=== PATIENT | female | born 1940 | race Caucasian/White ===

== ENCOUNTER 2017-02-17 20:44 | Inpatient (IN) | payer MEDICARE ==
[~2017-02-17] VITALS: Ht 157.5 cm; Wt 81.3 kg
[~2017-02-17 20:44] MED LIST: APIX5TAB PO; BETH25 PO; FENO50TA PO; HYDR7.5T76 PO; LEVO75TA3 PO; METO5TAB PO; NEXI40CA PO; OMEG1CAP53 PO; PRAM.25 PO; RANI150 PO; REST0.05 OU; TAB-TAB PO; VITA20003 PO; VITA250L OR; XALA0.00 EACH EYE
[2017-02-17 20:50] VITALS: BP 187/85; PULSE 95; RESP 18; TEMP 98.2; O2SAT 96
[2017-02-17 21:24] VITALS: TEMP 99.7
[2017-02-17] MEDS ORDERED: MULT1TAB46 ×2 (21:25)
[2017-02-17] MEDS ORDERED: HYDR-3113 PO ×2 (21:26)
[2017-02-17] MEDS ORDERED: ZETI10TA5 PO ×2 (21:26)
[2017-02-17] MEDS ORDERED: TRIA37.53 PO ×2 (21:26)
[2017-02-17] MEDS ORDERED: METO5TAB PO ×2 (21:26)
[2017-02-17] MEDS ORDERED: HYDR-3583 PO ×2 (21:26)
[2017-02-17] MEDS ORDERED: OMEG1CAP53 PO ×2 (21:26)
[2017-02-17] MEDS ORDERED: PRAM0.5T PO ×2 (21:26)
[2017-02-17] MEDS ORDERED: VITA1000 PO ×2 (21:26)
[2017-02-17] MEDS ORDERED: ZANT150T2 PO ×2 (21:26)
[2017-02-17] MEDS ORDERED: FENO145T2 PO ×2 (21:26)
[2017-02-17] MEDS ORDERED: CYAN25005 ×2 (21:26)
[2017-02-17] MEDS ORDERED: MAGN250T11 PO ×2 (21:26)
[2017-02-17] MEDS ORDERED: LEVO.075 PO ×2 (21:26)
[2017-02-17] MEDS ORDERED: REST0.05 EACH EYE ×2 (21:26)
[2017-02-17] MEDS ORDERED: LATA.005%O EACH EYE ×2 (21:26)
[2017-02-17] MEDS ORDERED: NEXI40CA PO ×2 (21:26)
[2017-02-17] MEDS ORDERED: BETH25TA2 PO ×2 (21:26)
[2017-02-17] MEDS ORDERED: ONDANSETRON HCL 4 MG/2 ML VIAL IV ONE ×4 (21:30→23:15)
[2017-02-17] MEDS ORDERED: SODIUM CHLOR 0.9% 1000 ML INJ 1,000 ML IV SCH ×2 (21:30)
--- NOTE | 2017-02-17 21:33 | PD ---
HPI Chief Complaint: GI Complaint Time Seen by Provider: 21:22 Travel History International Travel<30 days: No Contact w/Intl Traveler<30days: No Traveled to known affect area: No History of Present Illness HPI The patient is a 76-year-old female that this morning at about 10:30 had cystoscopy, ureteroscopy and the scope went up to the renal pelvis but no biopsy was taken. Apparently, the mass they wanted to biopsy was on the outside of the kidney and not accessible by the scope. The patient at about 4 PM began having nausea, vomiting and chills and diaphoresis. She says she gets chills and diaphoresis frequently but not the nausea and vomiting. She denies any fever. She denies any chest pain or abdominal pain or shortness of breath. She does have a history of diabetes but they did not put her on metformin because she states her kidneys are bad. She quit smoking in 1996. She moved to [place] because she had Raynaud's syndrome. PFSH Past Medical History Hx Anticoagulant Therapy: Yes Arthritis: Yes Asthma: Yes Blood Disorders: No Anxiety: Yes Cancer: Yes (SKIN) Cardiovascular Problems: Yes (MITRAL VALVE PROLAPSE) High Cholesterol: Yes Chemotherapy: No Chest Pain: No Diabetes: No Diminished Hearing: No Diverticulitis: Yes Deep Vein Thrombosis: Yes (PE's x 3) Endocrine: Yes GERD: Yes Glaucoma: Yes Hepatitis: No Hiatal Hernia: Yes Hypertension: Yes Immune Disorder: No Neurologic: Yes (SPINAL STENOSIS) Psychiatric: No Respiratory: Yes Integumentary: No Radiation Therapy: No Renal Failure: No (decreased kidney function since 2006) Thyroid Disease: Yes (HYPO) ?: Not Menopausal: Yes Past Surgical History Cholecystectomy: Yes Eye Surgery: Yes (CATARACTS WITH IMPLANTS) Thoracic Surgery: No Other Surgery: Yes (GALLBLADDER) Social History Alcohol Use: No Tobacco Use: No (quit in 1996 1 1/2 ppd of cigs) Substance Use: No Allergies-Medications (Allergen,Severity, Reaction): Coded Allergies: egg (Unverified Allergy, Severe, Anaphylaxis, 11/30/16) penicillin G (Unverified Allergy, Severe, Anaphylaxis, 11/30/16) Reported Meds & Prescriptions Reported Meds & Active Scripts Active Reported Zetia (Ezetimibe) 10 Mg Tab 10 Mg PO DAILY Zantac (Ranitidine HCl) 150 Mg Tab 150 Mg PO DAILY Xalatan Opth Drops (Latanoprost) 0.005% Drops 1 Drop EACH EYE HS Vitamin D-1000 (Cholecalciferol) 1,000 Unit Tab 2,000 Units PO DAILY Vitamin B12 (Cyanocobalamin (Vitamin B-12)) 2,500 Mcg Tab.chew Vicodin Es (Hydrocodone-Acetaminophen) 7.5-300 Tab 1 Tab PO Q6H PRN Triamterene-Hydrochlorothiazide 37.5-25 Mg Cap 1 Cap PO DAILY Synthroid (Levothyroxine Sodium) 75 Mcg Tab 75 Mcg PO DAILY Restasis Opth 0.05% (Cyclosporine Opth 0.05%) 0.05% Emul 1 Drop EACH EYE BID Pramipexole (Pramipexole Dihydrochloride) 0.5 Mg Tab 0.5 Mg PO BID Nexium (Esomeprazole DR) 40 Mg Capdr 40 Mg PO DAILY Magnesium Oxide 250 Mg Tab 250 Mg PO DAILY Lovaza (Zkuni-7-Ftms Ethyl Esters) 1 Gm Cap 2 Gm PO BID Hydrocodone-Acetaminophen 10-325 mg Tab 1 Tab PO Q4H PRN Fenofibrate 145 Mg Tab 145 Mg PO DAILY Bethanechol 25 Mg Tab 12.5 Mg PO BID Metoclopramide (Metoclopramide HCl) 5 Mg Tab 5 Mg PO QID Multi Vitamin Daily (Multiple Vitamin) 1 Tab Tab Review of Systems Except as stated in HPI: all other systems reviewed are Neg Physical Exam Narrative GENERAL: The patient is alert, diaphoretic, oriented 3 and answers questions quickly improperly. She has checking chills and feels cool generally. Her vital signs show blood pressure 187/85 but are otherwise normal. The oral temp was 98.2 and the rectal temp 99.7. SKIN: Focused skin assessment warm/dry. No skin rash is present. HEAD: Atraumatic. Normocephalic. EYES: Pupils equal and round. No scleral icterus. No injection or drainage. ENT: No nasal bleeding or discharge. Mucous membranes pink and moist. NECK: Trachea midline. No JVD. There is no meningismus. CARDIOVASCULAR: Regular rate and rhythm. No murmur appreciated. RESPIRATORY: No accessory muscle use. Clear to auscultation. Breath sounds equal bilaterally. GASTROINTESTINAL: Abdomen soft, non-tender, nondistended. Hepatic and splenic margins not palpable. No guarding or rebound is present. MUSCULOSKELETAL: No obvious deformities. No clubbing. No cyanosis. No edema. NEUROLOGICAL: Awake and alert. No obvious cranial nerve deficits. Motor grossly within normal limits. Normal speech. PSYCHIATRIC: Appropriate mood and affect; insight and judgment normal. Data Data Last Documented VS Vital Signs Date Time Temp Pulse Resp B/P (MAP) Pulse Ox O2 Delivery O2 Flow Rate FiO2 02/17/17 23:00 97.9 87 16 193/80 (117) 95 Room Air Orders Orders Complete Blood Count With Diff (02/17/17 21:22) Comprehensive Metabolic Panel (02/17/17 21:22) Urinalysis - C+S If Indicated (02/17/17 21:22) Sodium Chlor 0.9% 1000 Ml Inj (Ns 1000 M (02/17/17 21:30) Ondansetron Inj (Zofran Inj) (02/17/17 21:30) Ondansetron Inj (Zofran Inj) (02/17/17 23:15) Creatine Kinase (Cpk) (02/17/17 21:45) Troponin I (02/17/17 21:45) Urine Culture (02/17/17 23:03) Admit Order (Ed Use Only) (02/17/17 23:45) Labs Laboratory Tests Test 02/17/17 21:45 02/17/17 23:03 White Blood Count 13.5 TH/MM3 Red Blood Count 4.70 MIL/MM3 Hemoglobin 13.0 GM/DL Hematocrit 40.2 % Mean Corpuscular Volume 85.4 FL Mean Corpuscular Hemoglobin 27.6 PG Mean Corpuscular Hemoglobin Concent 32.4 % Red Cell Distribution Width 14.0 % Platelet Count 348 TH/MM3 Mean Platelet Volume 9.1 FL Neutrophils (%) (Auto) 84.3 % Lymphocytes (%) (Auto) 9.2 % Monocytes (%) (Auto) 6.1 % Eosinophils (%) (Auto) 0.2 % Basophils (%) (Auto) 0.2 % Neutrophils # (Auto) 11.5 TH/MM3 Lymphocytes # (Auto) 1.2 TH/MM3 Monocytes # (Auto) 0.8 TH/MM3 Eosinophils # (Auto) 0.0 TH/MM3 Basophils # (Auto) 0.0 TH/MM3 CBC Comment DIFF FINAL Differential Comment Blood Urea Nitrogen 38 MG/DL Creatinine 2.20 MG/DL Random Glucose 145 MG/DL Total Protein 8.5 GM/DL Albumin 3.2 GM/DL Calcium Level 9.5 MG/DL Alkaline Phosphatase 122 U/L Aspartate Amino Transf (AST/SGOT) 96 U/L Alanine Aminotransferase (ALT/SGPT) 65 U/L Total Bilirubin 0.3 MG/DL Sodium Level 143 MEQ/L Potassium Level 4.4 MEQ/L Chloride Level 109 MEQ/L Carbon Dioxide Level 24.8 MEQ/L Anion Gap 9 MEQ/L Estimat Glomerular Filtration Rate 22 ML/MIN Total Creatine Kinase 44 U/L Troponin I LESS THAN 0.02 NG/ML Urine Color DELGADO Urine Turbidity CLOUDY Urine pH 5.5 Urine Specific [place] 1.025 Urine Protein 100 mg/dL Urine Glucose (UA) NEG mg/dL Urine Ketones NEG mg/dL Urine Occult Blood LARGE Urine Nitrite NEG Urine Bilirubin NEG Urine Leukocyte Esterase SMALL Urine RBC 25-49 /hpf Urine WBC 25-49 /hpf Urine Squamous Epithelial Cells 0-5 /hpf Urine Bacteria MOD /hpf Microscopic Urinalysis Comment CULTURE INDICATED MDM Medical Decision Making Medical Screen Exam Complete: Yes Emergency Medical Condition: Yes Medical Record Reviewed: Yes Interpretation(s) The urine shows delgado color with cloudy turbidity and 100 protein and large blood and small leukocyte Estrace and 25-49 white cells and 25-49 red cells and moderate bacteria and culture is indicated. The complete metabolic profile shows a creatinine of 2.20, BUN of 38, GFR of 22 with glucose 145 and AST of 96 and ALT of 65 and alkaline phosphatase of 122 and total protein 8.5 and albumin 3.2 but is otherwise unremarkable. The CBC shows a white count of 13,500 with 84% neutrophils. Differential Diagnosis Urinary tract infection, electrolyte disorder, occult infection, hypo-/ hyperglycemia, renal insufficiency Narrative Course The patient still has nausea despite 8 mg of Zofran IV. She has a leukocytosis of 13,500. She still has pain around the left UVJ area where she had her urologic procedure earlier today. Diagnosis Primary Impression: Pyelonephritis Additional Impressions: Intractable nausea and vomiting Abdominal pain Admitting Information Admitting Physician Requests: Admit Juan Nguyen MD Feb 17, 2017 21:33
[2017-02-17 22:00] LABS: AUTOMATED NEUTROPHIL # 11.5 TH/MM3 (1.8-7.7); BASOPHIL % 0.2 % (0.0-2.0); EOSINOPHIL % 0.2 % (0.0-4.0); HEMATOCRIT 40.2 % (35.0-46.0); LYMPH % 9.2 % (9.0-44.0); LYMPHOCYTE # 1.2 TH/MM3 (1.0-4.8); MEAN CELL VOLUME 85.4 FL (80.0-100.0); MEAN CORPUSCULAR HEMOGLOBIN 27.6 PG (27.0-34.0); MEAN CORPUSCULAR HGB CONC 32.4 % (32.0-36.0); MEAN PLATELET VOLUME 9.1 FL (7.0-11.0); MONO % 6.1 % (0.0-8.0); MONOCYTE # 0.8 TH/MM3 (0-0.9); NEUT % 84.3 % (16.0-70.0); PLATELET COUNT 348 TH/MM3 (150-450); WHITE BLOOD COUNT 13.5 TH/MM3 (4.0-11.0)
[2017-02-17 22:08] LABS: CHLORIDE 109 MEQ/L (98-107); SODIUM (NA) 143 MEQ/L (136-145)
[2017-02-17 22:10] LABS: BLOOD UREA NITROGEN 38 MG/DL (7-18)
[2017-02-17 22:11] LABS: ALBUMIN 3.2 GM/DL (3.4-5.0); BICARBONATE 24.8 MEQ/L (21.0-32.0); CALCIUM 9.5 MG/DL (8.5-10.1); GLUCOSE,RANDOM 145 MG/DL (74-106)
[2017-02-17 22:14] LABS: ALT (GPT) 65 U/L (10-53); AST (GOT) 96 U/L (15-37)
[2017-02-17 22:15] LABS: GLOMERULAR FILTRATION RATE 22 ML/MIN (>89)
[2017-02-17 22:16] LABS: TOTAL BILIRUBIN ADULT 0.3 MG/DL (0.2-1.0); TOTAL PROTEIN 8.5 GM/DL (6.4-8.2)
[2017-02-17 22:17] LABS: ALKALINE PHOSPHATASE 122 U/L (45-117)
[2017-02-17 23:00] VITALS: BP 193/80; PULSE 87; RESP 16; TEMP 97.9; O2SAT 95
[2017-02-17 23:12] LABS: BILIRUBIN, URINE NEG (NEG); BLOOD, URINE LARGE (NEG); GLUCOSE,URINE NEG (NEG); KETONE, URINE NEG (NEG); NITRITE,URINE NEG (NEG); PH, URINE 5.5 (5.0-8.5); URINE LEUKOCYTE ESTERASE SMALL (NEG)
[2017-02-17 23:20] LABS: BACTERIA, URINE MOD /hpf; SQUAMOUS EPITHELIAL CELL URINE 0-5 /hpf (0-5); URINE COLOR AMBER (YELLW/STRAW)
[2017-02-17 23:39] LABS: TROPONIN I LESS THAN 0.02 NG/ML (0.02-0.05)
[2017-02-18] VITALS (10 sets, daily range): BP systolic 144–204; BP diastolic 66–91; PULSE 71–90; RESP 16–22; TEMP 96.8–98.7; O2SAT 92–97
[2017-02-18] MEDS ORDERED: MORPHINE SULFATE 2 MG/ML INJ IV PUSH PRN ×2
[2017-02-18] MEDS ORDERED: PROCHLORPERAZINE 25 MG SUPP RECTAL PRN ×2
[2017-02-18] MEDS ORDERED: NALOXONE HCL 0.4 MG/ML AMP IV PUSH PRN ×2
[2017-02-18] MEDS ORDERED: CIPROFLOXACIN 400 MG PREMIX 200 ML IV ONE ×2
[2017-02-18] MEDS ORDERED: SODIUM CHLORIDE 0.9% FLUSH 10 ML FLUSH IV FLUSH PRN ×2
[2017-02-18] MEDS ORDERED: CIPROFLOXACIN 400 MG PREMIX 200 ML IV SCH ×2
[2017-02-18] MEDS ORDERED: DEXTROSE 50% IN WATER 50 ML VIAL(D50) IV PUSH PRN (00:15)
[2017-02-18] MEDS ORDERED: GLUCAGON 1 MG/ML VIAL OTHER PRN ×2 (00:15)
[2017-02-18] MEDS: SODIUM CHLOR 0.45% 1000 ML INJ 1,000 ML IV SCH ×4 (00:22→16:32)
[2017-02-18] MEDS ORDERED: MORPHINE SULFATE 2 MG/ML INJ IV PUSH ONE ×4 (00:30)
[2017-02-18] MEDS: ONDANSETRON HCL 4 MG/2 ML VIAL IVP PRN ×2 (06:21)
[2017-02-18 06:34] LABS: BASOPHIL # 0.1 TH/MM3 (0-0.2); BASOPHIL % 0.9 % (0.0-2.0); EOSINOPHIL # 0.1 TH/MM3 (0-0.4); EOSINOPHIL % 1.2 % (0.0-4.0); HEMATOCRIT 38.5 % (35.0-46.0); HEMOGLOBIN 12.6 GM/DL (11.6-15.3); LYMPH % 13.1 % (9.0-44.0); LYMPHOCYTE # 1.3 TH/MM3 (1.0-4.8); MEAN CELL VOLUME 85.9 FL (80.0-100.0); MEAN CORPUSCULAR HEMOGLOBIN 28.2 PG (27.0-34.0); MEAN CORPUSCULAR HGB CONC 32.8 % (32.0-36.0); MEAN PLATELET VOLUME 9.9 FL (7.0-11.0); MONO % 6.9 % (0.0-8.0); MONOCYTE # 0.7 TH/MM3 (0-0.9); NEUT % 77.9 % (16.0-70.0); PLATELET COUNT 277 TH/MM3 (150-450); RED BLOOD COUNT 4.48 MIL/MM3 (4.00-5.30); RED CELL DISTRIBUTION WIDTH 13.9 % (11.6-17.2); WHITE BLOOD COUNT 10.2 TH/MM3 (4.0-11.0)
[2017-02-18 06:38] LABS: CHLORIDE 113 MEQ/L (98-107); SODIUM (NA) 146 MEQ/L (136-145)
[2017-02-18 06:43] LABS: GLUCOSE,RANDOM 128 MG/DL (74-106)
[2017-02-18 06:44] LABS: BICARBONATE 23.3 MEQ/L (21.0-32.0); BLOOD UREA NITROGEN 33 MG/DL (7-18)
[2017-02-18 06:46] LABS: ALT (GPT) 54 U/L (10-53)
[2017-02-18 06:47] LABS: AST (GOT) 70 U/L (15-37); GLOMERULAR FILTRATION RATE 24 ML/MIN (>89)
[2017-02-18 06:48] LABS: TOTAL BILIRUBIN ADULT 0.4 MG/DL (0.2-1.0)
[2017-02-18 06:49] LABS: ALKALINE PHOSPHATASE 102 U/L (45-117)
[2017-02-18] MEDS: SODIUM CHLORIDE 0.9% FLUSH 10 ML FLUSH IV FLUSH SCH ×4 (08:28→20:33)
[2017-02-18] MEDS ORDERED: ACETAMINOPHEN/HYDROcodone 325 MG/10 MG TAB PO PRN ×2 (08:30)
[2017-02-18] MEDS ORDERED: ACETAMINOPHEN/HYDROcodone 325 MG/5 MG TAB PO PRN ×2 (08:30)
[2017-02-18] MEDS: INSULIN ASPART SUPPLEMENTAL SCALE SQ SCH ×8 (08:32→20:36)
[2017-02-18] MEDS ORDERED: cloNIDine HCL 0.1 MG TAB PO PRN ×2 (09:00)
--- NOTE | 2017-02-18 11:42 | HHI.HP ---
[facility] Primary Care Physician Erin Roberson MD Admission Diagnosis pyelonephritis, intractable nausea/vomiting, Diagnoses: (1) Pyelonephritis Diagnosis: Principal (2) Abdominal pain Diagnosis: Principal (3) Intractable nausea and vomiting Diagnosis: Principal Travel History International Travel<30 Days: No Contact w/Intl Traveler <30 Da: No Traveled to Known Affected Are: No History of Present Illness Mrs. Goins is a 76 year old female. She came into the hospital last night secondary to abdominal pain and irretractable nausea and vomiting. Urine is positive for UTI. Clinically patient meets criteria for pyelonephritis, with back pain and nausea and vomiting and CVA tenderness. She reports that she's been having off-and-on fever and chills since October of this year. She may have problems with recurrent urinary tract infections. She's had problems with this past and she was younger. History lists history of pulmonary embolisms the patient says that this was related to her aortic stenosis was not found to be validated on the CTA. Her most recent medical issues have been related to left renal mass. 2 cystoscopies were performed last week with the first placing a stent in the second removing the stent. Biopsies could not be obtained by this method. She will have a left renal mass removal surgery in the next month. Her only other complaint right now is lower back pain. She still has fever and chills. Review of Systems Constitutional: COMPLAINS OF: Fatigue, Fever, Chills, Night Sweats Eyes: DENIES: Diplopia, Eye inflammation, Eye pain Ears, nose, mouth, throat: DENIES: Hearing loss, Vertigo, Nasal discharge Respiratory: DENIES: Apneas, Cough, Snoring, Wheezing, Shortness of breath Cardiovascular: DENIES: Chest pain, Palpitations, Syncope Gastrointestinal: DENIES: Abdominal pain, Black stools, Bloody stools, Constipation Musculoskeletal: COMPLAINS OF: Back pain, DENIES: Joint pain, Muscle aches, Stiffness Integumentary: DENIES: Abnormal pigmentation, Pruritus, Rash Hematologic/lymphatic: DENIES: Bruising, Lymphadenopathy Immunologic/allergic: DENIES: Eczema, Urticaria Neurologic: DENIES: Abnormal gait, Headache, Paresthesias Psychiatric: DENIES: Anxiety, Confusion, Hallucinations Past Family Social History Past Medical History Osteoarthritis Asthma Gen. anxiety disorder History of skin cancer Hyperlipidemia Mitral valve prolapse next line diverticulosis Glaucoma Gastroesophageal reflux disease Hypertension Hiatal hernia Spinal stenosis Hypothyroidism Chronic kidney disease Gastroparesis History of pancreatitis Left renal mass Past Surgical History Cholecystectomy Cataract surgery Reported Medications Reported Meds & Active Scripts Active Reported Zetia (Ezetimibe) 10 Mg Tab 10 Mg PO DAILY Zantac (Ranitidine HCl) 150 Mg Tab 150 Mg PO DAILY Xalatan Opth Drops (Latanoprost) 0.005% Drops 1 Drop EACH EYE HS Vitamin D-1000 (Cholecalciferol) 1,000 Unit Tab 2,000 Units PO DAILY Vitamin B12 (Cyanocobalamin (Vitamin B-12)) 2,500 Mcg Tab.chew Vicodin Es (Hydrocodone-Acetaminophen) 7.5-300 Tab 1 Tab PO Q6H PRN Triamterene-Hydrochlorothiazide 37.5-25 Mg Cap 1 Cap PO DAILY Synthroid (Levothyroxine Sodium) 75 Mcg Tab 75 Mcg PO DAILY Restasis Opth 0.05% (Cyclosporine Opth 0.05%) 0.05% Emul 1 Drop EACH EYE BID Pramipexole (Pramipexole Dihydrochloride) 0.5 Mg Tab 0.5 Mg PO BID Nexium (Esomeprazole DR) 40 Mg Capdr 40 Mg PO DAILY Magnesium Oxide 250 Mg Tab 250 Mg PO DAILY Lovaza (Ynzdu-0-Dkai Ethyl Esters) 1 Gm Cap 2 Gm PO BID Hydrocodone-Acetaminophen 10-325 mg Tab 1 Tab PO Q4H PRN Fenofibrate 145 Mg Tab 145 Mg PO DAILY Bethanechol 25 Mg Tab 12.5 Mg PO BID Metoclopramide (Metoclopramide HCl) 5 Mg Tab 5 Mg PO QID Multi Vitamin Daily (Multiple Vitamin) 1 Tab Tab Allergies: Coded Allergies: egg (Unverified Allergy, Severe, Anaphylaxis, 11/30/16) penicillin G (Unverified Allergy, Severe, Anaphylaxis, 11/30/16) Active Ordered Medications Administered Medications Medications (Trade) Dose Ordered Sig/Vicky Route PRN Reason Start Time Stop Time Status Last Admin Dose Admin Morphine Sulfate (Morphine Inj) 2 mg Q3H PRN IV PUSH pain > 4 02/18/17 00:00 02/18/17 06:19 Sodium Chloride 1,000 ml @ 83 mls/hr Q12H3M IV 02/17/17 23:53 02/18/17 00:22 Ondansetron HCl (Zofran Inj) 4 mg Q6H PRN IVP NAUSEA OR VOMITING 02/18/17 00:00 02/18/17 06:21 Family History No positive family history provided Social History No alcohol abuse Illicit drug abuse History of smoking about one half pack per day and patient quit in 1996 Physical Exam Vital Signs Vital Signs Date Time Temp Pulse Resp B/P (MAP) Pulse Ox O2 Delivery O2 Flow Rate FiO2 02/18/17 08:00 97.0 86 20 175/86 (115) 92 02/18/17 04:00 96.9 80 22 180/81 (114) 97 02/18/17 01:36 90 02/18/17 01:30 97.6 88 22 204/91 (128) 94 180/70 (106) 02/18/17 01:19 177/82 (113) 98 02/18/17 00:41 16 02/18/17 00:33 90 16 179/67 (104) 96 Room Air 02/18/17 00:12 16 02/17/17 23:00 97.9 87 16 193/80 (117) 95 Room Air 02/17/17 21:24 99.7 02/17/17 20:50 98.2 95 18 187/85 (119) 96 Physical Exam GENERAL: NAD, A&Ox3 HEAD: Normocephalic. NECK: Supple, trachea midline. No lymphadenopathy. EYES: No scleral icterus. No injection or drainage. CARDIOVASCULAR: Regular rate and rhythm without murmurs, gallops, or rubs. RESPIRATORY: Breath sounds equal bilaterally. No accessory muscle use. GASTROINTESTINAL: Abdomen soft, non-tender, nondistended. MUSCULOSKELETAL: No cyanosis, or edema. Mild CVA tenderness bilaterally SKIN: Warm and dry. NEURO: No focal neurological deficitis. Laboratory Laboratory Tests Test 02/17/17 21:45 02/17/17 23:03 02/18/17 05:45 White Blood Count 13.5 10.2 Red Blood Count 4.70 4.48 Hemoglobin 13.0 12.6 Hematocrit 40.2 38.5 Mean Corpuscular Volume 85.4 85.9 Mean Corpuscular Hemoglobin 27.6 28.2 Mean Corpuscular Hemoglobin Concent 32.4 32.8 Red Cell Distribution Width 14.0 13.9 Platelet Count 348 277 Mean Platelet Volume 9.1 9.9 Neutrophils (%) (Auto) 84.3 77.9 Lymphocytes (%) (Auto) 9.2 13.1 Monocytes (%) (Auto) 6.1 6.9 Eosinophils (%) (Auto) 0.2 1.2 Basophils (%) (Auto) 0.2 0.9 Neutrophils # (Auto) 11.5 8.0 Lymphocytes # (Auto) 1.2 1.3 Monocytes # (Auto) 0.8 0.7 Eosinophils # (Auto) 0.0 0.1 Basophils # (Auto) 0.0 0.1 CBC Comment DIFF FINAL DIFF FINAL Differential Comment Blood Urea Nitrogen 38 33 Creatinine 2.20 2.00 Random Glucose 145 128 Total Protein 8.5 8.0 Albumin 3.2 3.0 Calcium Level 9.5 9.0 Alkaline Phosphatase 122 102 Aspartate Amino Transf (AST/SGOT) 96 70 Alanine Aminotransferase (ALT/SGPT) 65 54 Total Bilirubin 0.3 0.4 Sodium Level 143 146 Potassium Level 4.4 4.1 Chloride Level 109 113 Carbon Dioxide Level 24.8 23.3 Anion Gap 9 10 Estimat Glomerular Filtration Rate 22 24 Total Creatine Kinase 44 Troponin I LESS THAN 0.02 Urine Color KATIE Urine Turbidity CLOUDY Urine pH 5.5 Urine Specific [place] 1.025 Urine Protein 100 Urine Glucose (UA) NEG Urine Ketones NEG Urine Occult Blood LARGE Urine Nitrite NEG Urine Bilirubin NEG Urine Leukocyte Esterase SMALL Urine RBC 25-49 Urine WBC 25-49 Urine Squamous Epithelial Cells 0-5 Urine Bacteria MOD Microscopic Urinalysis Comment CULTURE INDICATED Date/Time Source Procedure Growth Status 02/17/17 23:03 Urine Clean Catch Urine Culture Pending Received Result Diagram: 02/18/17 0545 02/18/1745 Caprini VTE Risk Assessment Caprini VTE Risk Assessment: Mod/High Risk (score >= 2) Caprini Risk Assessment Model Point Value = 1 Point Value = 2 Point Value = 3 Point Value = 5 Age 41-60 Minor surgery BMI > 25 kg/m2 Swollen legs Varicose veins or History of unexplained or recurrent spontaneous Oral contraceptives or hormone replacement Sepsis (< 1 month) Serious lung disease, including pneumonia (< 1 month) Abnormal pulmonary function Acute myocardial infarction Congestive heart failure (< 1 month) History of inflammatory bowel disease Medical patient at bed rest Age 61-74 Arthroscopic surgery Major open surgery (> 45 min) Laparoscopic surgery (> 45 min) Malignancy Confined to bed (> 72 hours) Immobilizing plaster cast Central venous access Age >= 75 History of VTE Family history of VTE Factor V Leiden Prothrombin [id number] Lupus anticoagulant Anticardiolipin antibodies Elevated serum homocysteine Heparin-induced thrombocytopenia Other congenital or acquired thrombophilia Stroke (< 1 month) Elective arthroplasty Hip, pelvis, or leg fracture Acute spinal cord injury (< 1 month) Prophylaxis Regimen Total Risk Factor Score Risk Level Prophylaxis Regimen 0-1 Low Early ambulation 2 Moderate Order ONE of the following: *Sequential Compression Device (SCD) *Heparin 5000 units SQ BID 3-4 Higher Order ONE of the following medications: *Heparin 5000 units SQ TID *Enoxaparin/Lovenox 40 mg SQ daily (WT < 150 kg, CrCl > 30 mL/min) *Enoxaparin/Lovenox 30 mg SQ daily (WT < 150 kg, CrCl > 10-29 mL/min) *Enoxaparin/Lovenox 30 mg SQ BID (WT < 150 kg, CrCl > 30 mL/min) AND/OR *Sequential Compression Device (SCD) 5 or more Highest Order ONE of the following medications: *Heparin 5000 units SQ TID (Preferred with Epidurals) *Enoxaparin/Lovenox 40 mg SQ daily (WT < 150 kg, CrCl > 30 mL/min) *Enoxaparin/Lovenox 30 mg SQ daily (WT < 150 kg, CrCl > 10-29 mL/min) *Enoxaparin/Lovenox 30 mg SQ BID (WT < 150 kg, CrCl > 30 mL/min) AND *Sequential Compression Device (SCD) Assessment and Plan Problem List: (1) Pyelonephritis ICD Code: N12 - Tubulo-interstitial nephritis, not specified as acute or chronic Status: Acute (2) Abdominal pain ICD Code: R10.9 - Unspecified abdominal pain Status: Acute (3) Intractable nausea and vomiting ICD Code: R11.2 - Nausea with vomiting, unspecified Status: Acute Assessment and Plan Assessment and plan 76-year-old female admitted with acute pyelonephritis Urinary tract infection Acute pyelonephritis Continue ciprofloxacin Begin doxycycline Follow UA cultures Treat pain as needed Hyperemesis History gastroparesis Likely related to kidney inflammation Treatment infection as above As needed antiemetics Monitor for any worsening of baseline gastroparesis Hypertension Continue baseline treatments Begin as needed clonidine Follow blood pressures Left renal mass Acute on Chronic kidney disease May be contributory Recent cystoscopies also could be contributory to pyelonephritis Follow-up as an outpatient IV hydration Follow renal function Osteoarthritis Asthma Gen. anxiety disorder History of skin cancer Hyperlipidemia Mitral valve prolapse diverticulosis Glaucoma Gastroesophageal reflux disease Hiatal hernia Spinal stenosis Hypothyroidism History of pancreatitis Continue baseline treatments Follow clinically No plan to change regular treatments of these conditions DVT prophylaxis Lovenox (renally dosed) Physician Certification 2 Midnight Certification Type: Admission for Inpatient Services Order for Inpatient Services The services are ordered in accordance with Medicare regulations or non- Medicare payer requirements, as applicable. In the case of services not specified as inpatient-only, they are appropriately provided as inpatient services in accordance with the 2-midnight benchmark. Estimated LOS (days): 3 days is the estimated time the patient will need to remain in the hospital, assuming treatment plan goals are met and no additional complications. Post-Hospital Plan: Home Reji Glover MD Feb 18, 2017 11:42
[2017-02-18] MEDS: ENOXAPARIN SODIUM 40 MG/0.4 ML SYRINGE SQ SCH ×2 (12:35)
[2017-02-18] MEDS: DOXYCYCLINE INJ 100 MG in SODIUM CHLORIDE 0.9% INJ 100 ML IV SCH ×4 (12:36)
[2017-02-18] MEDS: ACETAMINOPHEN 325 MG TAB PO PRN ×4 (14:26→21:09)
[2017-02-18] MEDS ORDERED: ALUMINUM/MAGNESIUM/SIMETH 30 ML CUP PO PRN ×2 (15:00)
[2017-02-18] MEDS ORDERED: BELLADONNA ALKALOIDS/OPIUM 60 MG SUPP RECTAL PRN ×2 (17:30)
[2017-02-19] VITALS: BP 154/75; PULSE 87; RESP 18; TEMP 98.5; O2SAT 86
[2017-02-19] MEDS: CIPROFLOXACIN 400 MG PREMIX 200 ML IV SCH ×2 (00:08)
[2017-02-19] MEDS ORDERED: diphenhydrAMINE HCL 25 MG CAP PO ONE ×2 (00:15)
[2017-02-19] MEDS: DOXYCYCLINE INJ 100 MG in SODIUM CHLORIDE 0.9% INJ 100 ML IV SCH ×8 (00:17→11:16)
[2017-02-19] MEDS: ONDANSETRON HCL 4 MG/2 ML VIAL IVP PRN ×4 (01:29→06:48)
[2017-02-19 04:00] VITALS: BP 140/68; PULSE 69; RESP 18; TEMP 99; O2SAT 97
[2017-02-19] MEDS: SODIUM CHLOR 0.45% 1000 ML INJ 1,000 ML IV SCH ×2 (05:54)
[2017-02-19 06:56] LABS: AUTOMATED NEUTROPHIL # 8.4 TH/MM3 (1.8-7.7); BASOPHIL # 0.1 TH/MM3 (0-0.2); BASOPHIL % 0.9 % (0.0-2.0); EOSINOPHIL # 0.5 TH/MM3 (0-0.4); EOSINOPHIL % 4.2 % (0.0-4.0); HEMATOCRIT 33.7 % (35.0-46.0); HEMOGLOBIN 11.2 GM/DL (11.6-15.3); MEAN CORPUSCULAR HEMOGLOBIN 28.5 PG (27.0-34.0); MEAN CORPUSCULAR HGB CONC 33.2 % (32.0-36.0); MEAN PLATELET VOLUME 9.5 FL (7.0-11.0); MONO % 6.5 % (0.0-8.0); MONOCYTE # 0.8 TH/MM3 (0-0.9); NEUT % 71.4 % (16.0-70.0); PLATELET COUNT 265 TH/MM3 (150-450); RED BLOOD COUNT 3.92 MIL/MM3 (4.00-5.30); RED CELL DISTRIBUTION WIDTH 13.9 % (11.6-17.2); WHITE BLOOD COUNT 11.8 TH/MM3 (4.0-11.0)
[2017-02-19 07:02] LABS: CHLORIDE 106 MEQ/L (98-107); SODIUM (NA) 139 MEQ/L (136-145)
[2017-02-19 07:10] LABS: ALBUMIN 2.6 GM/DL (3.4-5.0); BICARBONATE 24.4 MEQ/L (21.0-32.0); BLOOD UREA NITROGEN 28 MG/DL (7-18); CALCIUM 9.1 MG/DL (8.5-10.1); GLUCOSE,RANDOM 96 MG/DL (74-106)
[2017-02-19 07:13] LABS: ALT (GPT) 44 U/L (10-53); AST (GOT) 51 U/L (15-37); GLOMERULAR FILTRATION RATE 31 ML/MIN (>89)
[2017-02-19 07:15] LABS: TOTAL BILIRUBIN ADULT 0.6 MG/DL (0.2-1.0); TOTAL PROTEIN 7.2 GM/DL (6.4-8.2)
[2017-02-19 07:16] LABS: ALKALINE PHOSPHATASE 88 U/L (45-117)
[2017-02-19 08:00] VITALS: BP 159/95; PULSE 88; RESP 18; TEMP 98.1; O2SAT 96
[2017-02-19] MEDS: INSULIN ASPART SUPPLEMENTAL SCALE SQ SCH ×8 (08:00→21:05)
[2017-02-19] MEDS: LIDOCAINE HCL 5% PATCH T-DERMAL SCH ×2 (08:07)
[2017-02-19] MEDS: SODIUM CHLORIDE 0.9% FLUSH 10 ML FLUSH IV FLUSH SCH ×4 (08:11→20:52)
[2017-02-19] MEDS ORDERED: LACTULOSE SYRUP 20 GM/30 ML CUP PO PRN ×2 (10:30)
[2017-02-19] MEDS: DOCUSATE SODIUM 100 MG CAP PO SCH ×4 (11:08→20:51)
[2017-02-19] MEDS: ENOXAPARIN SODIUM 40 MG/0.4 ML SYRINGE SQ SCH ×2 (11:16)
--- NOTE | 2017-02-19 11:26 | HHI.PR ---
Subjective Remarks Renal function is improving. Fevers have dissipated. Rigors have resolved. No new complaints. Culture has grown nothing specific. Objective Vital Signs Date Time Temp Pulse Resp B/P (MAP) Pulse Ox O2 Delivery O2 Flow Rate FiO2 02/19/17 08:00 98.1 88 18 159/95 (116) 96 02/19/17 08:00 Room Air 02/19/17 04:00 99.0 69 18 140/68 (92) 97 02/19/17 00:10 86 Nasal Cannula 2.00 02/19/17 00:00 98.5 87 18 154/75 (101) 86 02/18/17 20:00 98.7 73 16 144/77 (99) 96 02/18/17 20:00 71 02/18/17 16:00 97.1 76 20 145/66 (92) 94 02/18/17 14:23 168/75 (106) 02/18/17 12:00 96.8 83 20 163/88 (113) 94 I/O 02/18/17 02/18/17 02/18/17 02/19/17 02/19/17 02/19/17 07:00 15:00 23:00 07:00 15:00 23:00 Intake Total 2111 ml 1300 ml 866 ml 400 ml 300 ml Balance 2111 ml 1300 ml 866 ml 400 ml 300 ml Intake Oral 720 ml 1200 ml 400 ml IV Total 1391 ml 100 ml 866 ml 300 ml # Voids 1 2 2 # Bowel Movements 0 0 Result Diagram: 02/19/1720 02/19/17 0620 Objective Remarks GENERAL: NAD, A&Ox3 HEAD: Normocephalic. NECK: Supple, trachea midline. No lymphadenopathy. EYES: No scleral icterus. No injection or drainage. CARDIOVASCULAR: Regular rate and rhythm without murmurs, gallops, or rubs. RESPIRATORY: Breath sounds equal bilaterally. No accessory muscle use. GASTROINTESTINAL: Abdomen soft, non-tender, nondistended. MUSCULOSKELETAL: No cyanosis, or edema. SKIN: Warm and dry. NEURO: No focal neurological deficitis. A/P Problem List: (1) Intractable nausea and vomiting ICD Code: R11.2 - Nausea with vomiting, unspecified Status: Acute (2) Abdominal pain ICD Code: R10.9 - Unspecified abdominal pain Status: Acute (3) Pyelonephritis ICD Code: N12 - Tubulo-interstitial nephritis, not specified as acute or chronic Status: Acute Assessment and Plan Assessment and plan 76-year-old female admitted with acute pyelonephritis. Urinary tract infection Acute pyelonephritis Clinically improving Continue to follow cultures Continue ciprofloxacin Begin doxycycline Follow UA cultures Treat pain as needed Hyperemesis History gastroparesis Some improvement today Nausea remains Decreased emesis Likely related to kidney inflammation Treatment infection as above As needed antiemetics Monitor for any worsening of baseline gastroparesis Hypertension Continue baseline treatments Begin as needed clonidine Follow blood pressures Left renal mass Acute on Chronic kidney disease May be contributory Recent cystoscopies also could be contributory to pyelonephritis Follow-up as an outpatient IV hydration Follow renal function Renal function improving Osteoarthritis Asthma Gen. anxiety disorder History of skin cancer Hyperlipidemia Mitral valve prolapse diverticulosis Glaucoma Gastroesophageal reflux disease Hiatal hernia Spinal stenosis Hypothyroidism History of pancreatitis Continue baseline treatments Follow clinically No plan to change regular treatments of these conditions DVT prophylaxis Lovenox (renally dosed) Reji Glover MD Feb 19, 2017 11:26
[2017-02-19] MEDS: METOCLOPRAMIDE HCL 10 MG TAB PO SCH ×6 (12:36→20:52)
[2017-02-19 18:27] VITALS: PULSE 84
[2017-02-19] MEDS: FAMOTIDINE 20 MG TAB PO SCH ×2 (20:51)
[2017-02-19] MEDS: BETHANECHOL CHL 25 MG TAB PO SCH ×2 (20:53)
[2017-02-19] MEDS: ACETAMINOPHEN 325 MG TAB PO PRN ×2 (20:54)
[2017-02-19] MEDS ORDERED: LATANOPROST 0.005% OPHT SOLN 2.5 ML BTL EACH EYE SCH ×2 (21:00)
[2017-02-19] MEDS ORDERED: OMEGA ACID ETHYL ESTERS PO SCH ×2 (21:00)
[2017-02-19] MEDS ORDERED: PATIENT OWN MEDICATION (Cyclosporine Opth 0.05% (Restasis Opth 0.05%) 1 DROP) EACH EYE SCH ×2 (21:00)
[2017-02-19] MEDS: PRAMIPEXOLE DIHYDROCHLORIDE 0.25 MG TAB PO SCH ×2 (21:02)
[2017-02-19 21:56] VITALS: BP 159/72; PULSE 87; RESP 21; TEMP 98.7; O2SAT 93
[2017-02-19 22:08] VITALS: PULSE 83
[2017-02-20] VITALS: BP 142/65; PULSE 88; RESP 20; TEMP 97.3; O2SAT 95
[2017-02-20] MEDS: DOXYCYCLINE INJ 100 MG in SODIUM CHLORIDE 0.9% INJ 100 ML IV SCH ×8 (00:52→12:03)
[2017-02-20] MEDS: CIPROFLOXACIN 400 MG PREMIX 200 ML IV SCH ×2 (00:54)
[2017-02-20] MEDS ORDERED: LEVOTHYROXINE SODIUM 75 MCG TAB PO SCH ×2 (06:00)
[2017-02-20 07:25] LABS: CALCIUM 9.2 MG/DL (8.5-10.1)
[2017-02-20 07:29] LABS: CREATININE 1.5 MG/DL (0.50-1.00)
[2017-02-20 07:37] LABS: HEMOGLOBIN 11.2 GM/DL (11.6-15.3); MEAN CELL VOLUME 85.6 FL (80.0-100.0); MEAN CORPUSCULAR HEMOGLOBIN 28.1 PG (27.0-34.0); MEAN CORPUSCULAR HGB CONC 32.9 % (32.0-36.0); MEAN PLATELET VOLUME 9.7 FL (7.0-11.0); PLATELET COUNT 254 TH/MM3 (150-450); RED BLOOD COUNT 3.97 MIL/MM3 (4.00-5.30); RED CELL DISTRIBUTION WIDTH 14.1 % (11.6-17.2); WHITE BLOOD COUNT 8.8 TH/MM3 (4.0-11.0)
[2017-02-20 08:00] VITALS: BP 170/82; PULSE 75; RESP 18; TEMP 97.8; O2SAT 95
[2017-02-20] MEDS: INSULIN ASPART SUPPLEMENTAL SCALE SQ SCH ×4 (08:00→12:00)
[2017-02-20] MEDS: DOCUSATE SODIUM 100 MG CAP PO SCH ×2 (08:04)
[2017-02-20] MEDS: BETHANECHOL CHL 25 MG TAB PO SCH ×2 (08:11)
[2017-02-20] MEDS: FAMOTIDINE 20 MG TAB PO SCH ×2 (08:12)
[2017-02-20] MEDS: PRAMIPEXOLE DIHYDROCHLORIDE 0.25 MG TAB PO SCH ×2 (08:14)
[2017-02-20] MEDS: METOCLOPRAMIDE HCL 10 MG TAB PO SCH ×2 (08:14)
[2017-02-20] MEDS: SODIUM CHLORIDE 0.9% FLUSH 10 ML FLUSH IV FLUSH SCH ×2 (08:16)
[2017-02-20] MEDS: LIDOCAINE HCL 5% PATCH T-DERMAL SCH ×2 (08:17)
[2017-02-20] MEDS ORDERED: PANTOPRAZOLE SOD 40 MG DELAYED RELEASE TAB PO SCH ×2 (09:00)
[2017-02-20] MEDS ORDERED: TRIAMTERENE/HCTZ 37.5 MG/25 MG CAP PO SCH ×2 (09:00)
[2017-02-20] MEDS ORDERED: FENOFIBRATE 145 MG TAB PO SCH ×2 (09:00)
[2017-02-20] MEDS ORDERED: CHOLECALCIFEROL (VIT D3) 1000 UNIT TAB PO SCH ×2 (09:00)
[2017-02-20] MEDS ORDERED: EZETIMIBE 10 MG TAB PO SCH ×2 (09:00)
[2017-02-20] MEDS ORDERED: MAGNESIUM OXIDE 400 MG TAB PO SCH ×2 (09:00)
[2017-02-20] MEDS ORDERED: CIPR500T2 PO ×2 (11:05)
[2017-02-20] MEDS ORDERED: LACTTAB8 PO ×2 (11:05)
[2017-02-20] MEDS ORDERED: DOXY100C PO ×2 (11:05)
--- NOTE | 2017-02-20 11:09 | HHI.DS ---
Discharge Summary Admission Date Feb 18, 2017 at 11:27 Discharge Date: Feb 20, 2017 Admitting Diagnosis pyelonephritis, intractable nausea/vomiting, (1) Pyelonephritis ICD Code: N12 - Tubulo-interstitial nephritis, not specified as acute or chronic Diagnosis: Principal Status: Acute (2) Abdominal pain ICD Code: R10.9 - Unspecified abdominal pain Diagnosis: Secondary Status: Acute (3) Intractable nausea and vomiting ICD Code: R11.2 - Nausea with vomiting, unspecified Diagnosis: Secondary Status: Acute Procedures None Brief History - From Admission Mrs. Goins is a 76 year old female. She came into the hospital last night secondary to abdominal pain and irretractable nausea and vomiting. Urine is positive for UTI. Clinically patient meets criteria for pyelonephritis, with back pain and nausea and vomiting and CVA tenderness. She reports that she's been having off-and-on fever and chills since October of this year. She may have problems with recurrent urinary tract infections. She's had problems with this past and she was younger. History lists history of pulmonary embolisms the patient says that this was related to her aortic stenosis was not found to be validated on the CTA. Her most recent medical issues have been related to left renal mass. 2 cystoscopies were performed last week with the first placing a stent in the second removing the stent. Biopsies could not be obtained by this method. She will have a left renal mass removal surgery in the next month. Her only other complaint right now is lower back pain. She still has fever and chills. CBC/BMP: 02/20/17 0643 02/20/17 0643 Significant Findings Laboratory Tests Test 02/17/17 21:45 02/17/17 23:03 02/18/17 05:45 02/19/17 06:20 White Blood Count 13.5 TH/MM3 (4.0-11.0) 11.8 TH/MM3 (4.0-11.0) Neutrophils (%) (Auto) 84.3 % (16.0-70.0) 77.9 % (16.0-70.0) 71.4 % (16.0-70.0) Neutrophils # (Auto) 11.5 TH/MM3 (1.8-7.7) 8.0 TH/MM3 (1.8-7.7) 8.4 TH/MM3 (1.8-7.7) Blood Urea Nitrogen 38 MG/DL (7-18) 33 MG/DL (7-18) 28 MG/DL (7-18) Creatinine 2.20 MG/DL (0.50-1.00) 2.00 MG/DL (0.50-1.00) 1.60 MG/DL (0.50-1.00) Random Glucose 145 MG/DL (74-106) 128 MG/DL (74-106) Total Protein 8.5 GM/DL (6.4-8.2) Albumin 3.2 GM/DL (3.4-5.0) 3.0 GM/DL (3.4-5.0) 2.6 GM/DL (3.4-5.0) Alkaline Phosphatase 122 U/L (45-117) Aspartate Amino Transf (AST/SGOT) 96 U/L (15-37) 70 U/L (15-37) 51 U/L (15-37) Alanine Aminotransferase (ALT/SGPT) 65 U/L (10-53) 54 U/L (10-53) Chloride Level 109 MEQ/L (98-107) 113 MEQ/L (98-107) Estimat Glomerular Filtration Rate 22 ML/MIN (>89) 24 ML/MIN (>89) 31 ML/MIN (>89) Troponin I LESS THAN 0.02 NG/ML Urine Color KATIE (YELLW/STRAW) Urine Turbidity CLOUDY (CLEAR) Urine Protein 100 mg/dL (NEG-TRACE) Urine Occult Blood LARGE (NEG) Urine Leukocyte Esterase SMALL (NEG) Urine RBC 25-49 /hpf (0-3) Urine WBC 25-49 /hpf (0-5) Urine Bacteria MOD /hpf (NONE) Sodium Level 146 MEQ/L (136-145) Red Blood Count 3.92 MIL/MM3 (4.00-5.30) Hemoglobin 11.2 GM/DL (11.6-15.3) Hematocrit 33.7 % (35.0-46.0) Eosinophils (%) (Auto) 4.2 % (0.0-4.0) Eosinophils # (Auto) 0.5 TH/MM3 (0-0.4) Test 02/20/17 06:43 Red Blood Count 3.97 MIL/MM3 (4.00-5.30) Hemoglobin 11.2 GM/DL (11.6-15.3) Hematocrit 34.0 % (35.0-46.0) Blood Urea Nitrogen 26 MG/DL (7-18) Creatinine 1.50 MG/DL (0.50-1.00) Chloride Level 108 MEQ/L (98-107) Estimat Glomerular Filtration Rate 34 ML/MIN (>89) Hospital Course Mrs. Goins is a 76-year-old female. She was admitted secondary to acute pyelonephritis with hyperemesis. Low-grade fevers were also present. In the preceding week she had had 2 cystoscopy procedures including placement of stent and in-stent removal. She has a left renal mass and will have a nephrectomy in the following month. Treatment was provided with ciprofloxacin and doxycycline. Cultures grew mixed maria luisa but no specific identified bacteria. She has responded to antibiotic treatments thus far with resolution of hyperemesis, decrease in pain, and decreasing white blood cell count. Medically stable for discharge to home today on continuation of by mouth ciprofloxacin and by mouth doxycycline. Discharge home today. Pt Condition on Discharge: Stable Discharge Disposition: Discharge Home Discharge Time: <= 30 minutes Discharge Instructions DIET: Follow Instructions for: As Tolerated, No Restrictions Activities you can perform: Regular-No Restrictions Follow up Referrals: PCP Follow-up - 2 Weeks New Medications: Ciprofloxacin (Ciprofloxacin) 500 Mg Tab 500 MG PO BID for Infection, #14 TAB 0 Refills Doxycycline Hyclate (Doxycycline Hyclate) 100 Mg Cap 100 MG PO BID for Infection, #14 CAP 0 Refills Lactobacillus Acidophilus (Lactobacillus Acidophilus) 1 Billion Cell Tab 1 TAB PO TIDAC for Nutritional Supplement, #30 TAB 0 Refills Continued Medications: Bethanechol (Bethanechol) 25 Mg Tab 12.5 MG PO BID for Urinary Symptom Managemen, TAB 0 Refills Cholecalciferol (Vitamin D-1000) 1,000 Unit Tab 2000 UNITS PO DAILY for Nutritional Supplement, #1 BOTTLE 0 Refills Cyanocobalamin (Vitamin B-12) (Vitamin B12) 2,500 Mcg Tab.chew Cyclosporine Opth 0.05% (Restasis Opth 0.05%) 0.05% Emul 1 DROP EACH EYE BID for Dry Eye, #1 BOX [address] (Nexium) 40 Mg Capdr 40 MG PO DAILY, CAP 0 Refills Ezetimibe (Zetia) 10 Mg Tab 10 MG PO DAILY, #30 TAB 0 Refills Fenofibrate (Fenofibrate) 145 Mg Tab 145 MG PO DAILY, #30 TAB 0 Refills Hydrocodone-Acetaminophen (Hydrocodone-Acetaminophen) 10-325 mg Tab 1 TAB PO Q4H PRN for PAIN, TAB 0 Refills Hydrocodone-Acetaminophen (Vicodin Es) 7.5-300 Tab 1 TAB PO Q6H PRN for PAIN, TAB 0 Refills Latanoprost Opth Drops (Xalatan Opth Drops) 0.005% Drops 1 DROP EACH EYE HS for Glaucoma, #2.5 ML 0 Refills Levothyroxine (Synthroid) 75 Mcg Tab 75 MCG PO DAILY for Thyroid, #30 TAB 0 Refills Magnesium Oxide (Magnesium Oxide) 250 Mg Tab 250 MG PO DAILY, TAB 0 Refills Metoclopramide (Metoclopramide) 5 Mg Tab 5 MG PO QID, TAB 0 Refills Multiple Vitamin (Multi Vitamin Daily) 1 Tab Tab [id number] Ethyl Esters (Lovaza) 1 Gm Cap 2 GM PO BID for Manage Triglycerides, #120 CAP 0 Refills Pramipexole (Pramipexole) 0.5 Mg Tab 0.5 MG PO BID for Parkinson Disease Mgmt, #60 TAB 0 Refills Ranitidine (Zantac) 150 Mg Tab 150 MG PO DAILY for Reduce Stomach Acid, #30 TAB 0 Refills Triamterene-Hydrochlorothiazide (Triamterene-Hydrochlorothiazide) 37.5-25 Mg Cap 1 CAP PO DAILY, #30 CAP 0 Refills Reji Glover MD Feb 20, 2017 11:09
[2017-02-20] MEDS: ENOXAPARIN SODIUM 40 MG/0.4 ML SYRINGE SQ SCH ×2 (12:00)
== END 2017-02-20 14:15 | disposition home or self-care (01) | DRG 690 ==
LOC: PHED 20:44 → UNDOADMIN 23:49 → PHEDA 23:49 → INTOOBSV 02-18 → PHEDA 02-18 → PH3B 02-18 01:20 → OBSVTOIN 02-18 11:27
PROVIDERS: ADMIT Hospitalist; ATTEND Hospitalist
DX: N10 Acute pyelonephritis (principal); E11.22 Type 2 diabetes mellitus with diabetic chronic kidney disease; I34.1 Nonrheumatic mitral (valve) prolapse; R11.2 Nausea with vomiting, unspecified; I12.9 Hypertensive chronic kidney disease with stage 1 through stage 4 chronic kidney disease, or unspecified chronic kidney disease; N18.9 Chronic kidney disease, unspecified; M19.90 Unspecified osteoarthritis, unspecified site; J45.909 Unspecified asthma, uncomplicated; F41.9 Anxiety disorder, unspecified; E78.00 Pure hypercholesterolemia, unspecified; K21.9 Gastro-esophageal reflux disease without esophagitis; H40.9 Unspecified glaucoma; M48.00 Spinal stenosis, site unspecified; K44.9 Diaphragmatic hernia without obstruction or gangrene; E03.9 Hypothyroidism, unspecified; K31.84 Gastroparesis; N28.89 Other specified disorders of kidney and ureter; M54.5 Low back pain; Z85.828 Personal history of other malignant neoplasm of skin; Z86.711 Personal history of pulmonary embolism; Z79.01 Long term (current) use of anticoagulants; Z87.891 Personal history of nicotine dependence; Z87.440 Personal history of urinary (tract) infections; K57.90 Diverticulosis of intestine, part unspecified, without perforation or abscess without bleeding
CPT/HCPCS: 76937; 80048; 80053; 81001; 82550; 82948; 84484; 85025; 85027; 87086; 96361; 96374; J0744; J1650; J2270; J2405; J7030

== ENCOUNTER 2017-04-21 16:21 | Emergency (ER) | payer MEDICARE ==
[~2017-04-21] VITALS: Ht 160 cm; Wt 75.0 kg
[~2017-04-21 16:21] MED LIST changes: -APIX5TAB PO; -BETH25 PO; +BETH25TA2 PO; +CIPR500T2 PO; +CYAN25005; +DOXY100C PO; +EZET10 PO; +FENO145T2 PO; -FENO50TA PO; +HYDR-3113 PO; +HYDR-3583 PO; -HYDR7.5T76 PO; +LACTTAB8 PO; +LATA.005%O EACH EYE; +LEVO.075 PO; -LEVO75TA3 PO; +MAGN250T11 PO; +MULT1TAB46; -PRAM.25 PO; +PRAM0.5T PO; -RANI150 PO; +REST0.05 EACH EYE; -REST0.05 OU; -TAB-TAB PO; +TRIA37.53 PO; +VITA1000 PO; -VITA20003 PO; -VITA250L OR; -XALA0.00 EACH EYE; +ZANT150T2 PO
[2017-04-21 16:28] VITALS: BP 140/78; PULSE 91; RESP 16; TEMP 97.3; O2SAT 96
[2017-04-21] MEDS ORDERED: SODIUM CHLORIDE 0.9% FLUSH 10 ML FLUSH IVF PRN (16:45)
--- NOTE | 2017-04-21 16:52 | PD ---
HPI Chief Complaint: Abnormal Results Time Seen by Provider: 16:36 Travel History International Travel<30 days: No Contact w/Intl Traveler<30days: No Traveled to known affect area: No History of Present Illness HPI patient is a 76-year-old female presents emergency department for evaluation of abnormal lab results. The patient has no complaints. She has a relevant history of having a left nephrectomy for renal cancer approximately 2 weeks ago at the [facility] here in [place]. Patient states she's followed by Dr. Little. He received lab results from her from withdrawal last week which showed a potassium of 6 and referred her to the emergency department. The patient denies any chest pain palpitations decreased urine output. Endorses only some mild cramping at the surgical site which she states is gradually improving ever since her surgery. She denies any cardiac history. She's been taking her medications as prescribed. PFSH Past Medical History Hx Anticoagulant Therapy: Yes Arthritis: Yes Asthma: Yes Blood Disorders: No Anxiety: Yes Cancer: Yes (SKIN, kidney) Cardiovascular Problems: Yes (MITRAL VALVE PROLAPSE, AORTIC ANEURYSM) High Cholesterol: Yes Chemotherapy: No Chest Pain: No Congestive Heart Failure: No Diabetes: Yes Diminished Hearing: No Diverticulitis: Yes Deep Vein Thrombosis: Yes (PE's x 3) Endocrine: Yes GERD: Yes Glaucoma: Yes Genitourinary: Yes Hepatitis: No Hiatal Hernia: Yes Hypertension: Yes Immune Disorder: No Kidney Stones: No Musculoskeletal: Yes Neurologic: Yes (SPINAL STENOSIS) Psychiatric: Yes Respiratory: Yes Integumentary: No Radiation Therapy: No Renal Failure: Yes (decreased kidney function since 2006) Thyroid Disease: Yes (HYPO) Menopausal: Yes Past Surgical History Abdominal Surgery: Yes (MADDIE) Cholecystectomy: Yes Eye Surgery: Yes (CATARACTS WITH IMPLANTS) Genitourinary Surgery: Yes (Stent placement and removal) Thoracic Surgery: No Other Surgery: Yes (GALLBLADDER) Social History Alcohol Use: No Tobacco Use: No (quit in 1996 04 1/2 ppd of cigs) Substance Use: No Allergies-Medications (Allergen,Severity, Reaction): Coded Allergies: egg (Unverified Allergy, Severe, Anaphylaxis, 04/21/17) penicillin G (Unverified Allergy, Severe, Anaphylaxis, 04/21/17) latex (Verified Allergy, Unknown, 04/21/17) Reported Meds & Prescriptions Reported Meds & Active Scripts Active Sodium Polystyrene Sulfonate Liq (Sodium Polystyrene Sulfonate) 15 Gm/60 Ml Susp 15 Gm PO DAILY 7 Days Reported Singulair (Montelukast Sodium) 10 Mg Tab 10 Mg PO HS Multiple Vitamin 1 Tab 1 Tab PO DAILY Aspirin Children's (Aspirin) 81 Mg Chew 81 Mg CHEW DAILY Zetia (Ezetimibe) 10 Mg Tab 10 Mg PO DAILY Xalatan Opth Drops (Latanoprost) 0.005% Drops 1 Drop EACH EYE HS Vitamin D-1000 (Cholecalciferol) 1,000 Unit Tab 2,000 Units PO DAILY Vitamin B12 (Cyanocobalamin (Vitamin B-12)) 2,500 Mcg Tab.chew Triamterene-Hydrochlorothiazide 37.5-25 Mg Cap 1 Cap PO DAILY Synthroid (Levothyroxine Sodium) 75 Mcg Tab 75 Mcg PO DAILY Restasis Opth (Cyclosporine Opth) 0.05% Emul 1 Drop EACH EYE BID Pramipexole (Pramipexole Dihydrochloride) 0.5 Mg Tab 0.5 Mg PO BID Magnesium Oxide 250 Mg Tab 250 Mg PO DAILY Hydrocodone-Acetaminophen 10-325 mg Tab 1 Tab PO Q4H PRN Fenofibrate 145 Mg Tab 145 Mg PO DAILY Metoclopramide (Metoclopramide HCl) 5 Mg Tab 5 Mg PO QID Review of Systems Except as stated in HPI: all other systems reviewed are Neg Physical Exam Narrative GENERAL: Well-developed well-nourished in no obvious distress SKIN: Focused skin assessment warm/dry. Healing left sided abdominal surgical scar, clean dry and intact, no erythema. HEAD: Atraumatic. Normocephalic. EYES: Pupils equal and round. No scleral icterus. No injection or drainage. ENT: No nasal bleeding or discharge. Mucous membranes pink and moist. NECK: Trachea midline. No JVD. CARDIOVASCULAR: Regular rate and rhythm. No murmur appreciated. RESPIRATORY: No accessory muscle use. Clear to auscultation. Breath sounds equal bilaterally. GASTROINTESTINAL: Abdomen soft, non-tender, nondistended. Hepatic and splenic margins not palpable. MUSCULOSKELETAL: No obvious deformities. No clubbing. No cyanosis. No edema. NEUROLOGICAL: Awake and alert. No obvious cranial nerve deficits. Motor grossly within normal limits. Normal speech. PSYCHIATRIC: Appropriate mood and affect; insight and judgment normal. Data Data Last Documented VS Vital Signs Date Time Temp Pulse Resp B/P (MAP) Pulse Ox O2 Delivery O2 Flow Rate FiO2 04/21/17 18:53 04/21/17 17:46 79 20 95 04/21/17 16:28 97.3 Orders Orders Electrocardiogram (04/21/17 16:36) Complete Blood Count With Diff (04/21/17 16:36) Comprehensive Metabolic Panel (04/21/17 16:36) Ecg Monitoring (04/21/17 16:36) Iv Access Insert/Monitor (04/21/17 16:36) Oximetry (04/21/17 16:36) Oxygen Administration (04/21/17 16:36) Sodium Chloride 0.9% Flush (Ns Flush) (04/21/17 16:45) Sodium Polysty Sulfate Liq (Kayexalate L (04/21/17 18:45) Ed Discharge Order (04/21/17 18:46) Labs Laboratory Tests Test 04/21/17 16:50 White Blood Count 10.9 TH/MM3 Red Blood Count 3.87 MIL/MM3 Hemoglobin 10.8 GM/DL Hematocrit 32.6 % Mean Corpuscular Volume 84.1 FL Mean Corpuscular Hemoglobin 27.9 PG Mean Corpuscular Hemoglobin Concent 33.2 % Red Cell Distribution Width 14.1 % Platelet Count 456 TH/MM3 Mean Platelet Volume 8.8 FL Neutrophils (%) (Auto) 68.9 % Lymphocytes (%) (Auto) 22.5 % Monocytes (%) (Auto) 5.9 % Eosinophils (%) (Auto) 2.3 % Basophils (%) (Auto) 0.4 % Neutrophils # (Auto) 7.5 TH/MM3 Lymphocytes # (Auto) 2.5 TH/MM3 Monocytes # (Auto) 0.6 TH/MM3 Eosinophils # (Auto) 0.3 TH/MM3 Basophils # (Auto) 0.0 TH/MM3 CBC Comment DIFF FINAL Differential Comment Blood Urea Nitrogen 43 MG/DL Creatinine 3.00 MG/DL Random Glucose 192 MG/DL Total Protein 8.0 GM/DL Albumin 2.7 GM/DL Calcium Level 9.3 MG/DL Alkaline Phosphatase 77 U/L Aspartate Amino Transf (AST/SGOT) 22 U/L Alanine Aminotransferase (ALT/SGPT) 16 U/L Total Bilirubin 0.3 MG/DL Sodium Level 138 MEQ/L Potassium Level 5.3 MEQ/L Chloride Level 106 MEQ/L Carbon Dioxide Level 23.2 MEQ/L Anion Gap 9 MEQ/L Estimat Glomerular Filtration Rate 15 ML/MIN [facility] Medical Decision Making Medical Screen Exam Complete: Yes Emergency Medical Condition: Yes Interpretation(s) EKG shows normal sinus rhythm normal axis normal R-wave progression. No concerning ST segment changes, no changes consistent with hyperkalemia, intervals within normal limits. This is a normal EKG. Differential Diagnosis Hyperkalemia, acute kidney injury, lecture led abnormality, chronic kidney disease. Narrative Course Attempted to discuss patient with Dr. Little and was forwarded to Dr. Donovan. patient discussed with Dr. Donovan, recommends outpatient follow up with Dr. Little tomorrow. We have discussed all lab results including the creatinine the potassium and he recommends the patient be placed on Kayexalate. A dose was given prior to discharge. Discussed with the patient she needs to be discussed with Dr. Little by phone first thing in the morning for further recommendations. Diagnosis Primary Impression: Acute kidney injury Additional Impression: Hypokalemia Referrals: Elbert Dixon MD Med/Other Pt SpecificInfo: Prescription(s) given Scripts Sodium Polystyrene Sulfonate Liq (Sodium Polystyrene Sulfonate Liq) 15 Gm/60 Ml Susp 15 GM PO DAILY for Excess Potassium for 7 Days, #420 ML 0 Refills Prov: Jf Grant MD 04/21/17 Disposition: 01 DISCHARGE HOME Condition: Stable Jf Grant MD Apr 21, 2017 16:52
[2017-04-21 16:55] LABS: AUTOMATED NEUTROPHIL # 7.5 TH/MM3 (1.8-7.7); BASOPHIL % 0.4 % (0.0-2.0); EOSINOPHIL # 0.3 TH/MM3 (0-0.4); EOSINOPHIL % 2.3 % (0.0-4.0); HEMATOCRIT 32.6 % (35.0-46.0); HEMOGLOBIN 10.8 GM/DL (11.6-15.3); LYMPH % 22.5 % (9.0-44.0); LYMPHOCYTE # 2.5 TH/MM3 (1.0-4.8); MEAN CELL VOLUME 84.1 FL (80.0-100.0); MEAN CORPUSCULAR HEMOGLOBIN 27.9 PG (27.0-34.0); MEAN CORPUSCULAR HGB CONC 33.2 % (32.0-36.0); MEAN PLATELET VOLUME 8.8 FL (7.0-11.0); MONO % 5.9 % (0.0-8.0); MONOCYTE # 0.6 TH/MM3 (0-0.9); NEUT % 68.9 % (16.0-70.0); PLATELET COUNT 456 TH/MM3 (150-450); RED BLOOD COUNT 3.87 MIL/MM3 (4.00-5.30); RED CELL DISTRIBUTION WIDTH 14.1 % (11.6-17.2); WHITE BLOOD COUNT 10.9 TH/MM3 (4.0-11.0)
[2017-04-21] MEDS ORDERED: ASPI81CH7 CHEW (16:57)
[2017-04-21] MEDS ORDERED: MONT10TA2 PO (17:06)
[2017-04-21] MEDS ORDERED: MULTTAB67 PO (17:06)
[2017-04-21 17:07] LABS: CHLORIDE 106 MEQ/L (98-107); SODIUM (NA) 138 MEQ/L (136-145)
[2017-04-21 17:10] LABS: ALBUMIN 2.7 GM/DL (3.4-5.0); BICARBONATE 23.2 MEQ/L (21.0-32.0); CALCIUM 9.3 MG/DL (8.5-10.1); GLUCOSE,RANDOM 192 MG/DL (74-106)
[2017-04-21 17:11] LABS: BLOOD UREA NITROGEN 43 MG/DL (7-18)
[2017-04-21 17:13] LABS: ALT (GPT) 16 U/L (10-53); AST (GOT) 22 U/L (15-37)
[2017-04-21 17:14] LABS: GLOMERULAR FILTRATION RATE 15 ML/MIN (>89)
[2017-04-21 17:15] LABS: TOTAL BILIRUBIN ADULT 0.3 MG/DL (0.2-1.0)
[2017-04-21 17:16] LABS: ALKALINE PHOSPHATASE 77 U/L (45-117)
[2017-04-21 17:46] VITALS: BP 151/71; PULSE 79; RESP 20; O2SAT 95
[2017-04-21] MEDS ORDERED: SODI200S PO (18:37)
[2017-04-21] MEDS ORDERED: SODIUM POLYSTYRENE SULFONATE SUSP 15 GM/60 ML CUP PO ONE (18:45)
--- NOTE | 2017-04-22 22:51 | EKG ---
Date Performed: 04/21/2017 Time Performed: 16:44:33 PTAGE: 76 years EKG: Sinus rhythm NORMAL ECG PREVIOUS TRACING : 10/28/2009 03.35 Compared to prior tracing no significant change DOCTOR: Lavelle Hansen Interpretating Date/Time 04/22/2017 22:50:01
== END 2017-04-21 19:02 | disposition home or self-care (01) ==
LOC: PHED 16:21
DX: N17.9 Acute kidney failure, unspecified (principal); E87.6 Hypokalemia; M19.90 Unspecified osteoarthritis, unspecified site; F41.9 Anxiety disorder, unspecified; E78.00 Pure hypercholesterolemia, unspecified; E11.9 Type 2 diabetes mellitus without complications; I10 Essential (primary) hypertension; K21.9 Gastro-esophageal reflux disease without esophagitis; Z86.718 Personal history of other venous thrombosis and embolism
CPT/HCPCS: 80053; 85025; 93005

== ENCOUNTER → 2017-08-18 | Outpatient (CLI) | payer MEDICARE ==
[~2017-08-18] MED LIST changes: +ASPI81CH7 CHEW; -BETH25TA2 PO; -CIPR500T2 PO; -DOXY100C PO; -HYDR-3113 PO; -LACTTAB8 PO; +MONT10TA2 PO; -MULT1TAB46; +MULTTAB67 PO; -NEXI40CA PO; -OMEG1CAP53 PO; +SODI200S PO; -ZANT150T2 PO
--- NOTE | 2017-08-18 11:33 | RADRPT ---
EXAM DATE/TIME: 08/18/2017 10:07 [place] COMPARISON: No previous studies available for comparison. INDICATIONS : Dysphagia, cough, aspiration FLUORO TIME: 1.5 minutes IMAGE COUNT: 0 CONTRAST: Dose as prescribed by speech pathologist. MEDICAL HISTORY : ongoing cough for 2 years SURGICAL HISTORY : esophageal dilitation x2 ENCOUNTER: Initial ACUITY: >1 year PAIN SCORE: 0/10 LOCATION: Left neck FINDINGS: A modified barium swallow was performed with speech pathology. Patient was given a variety of liquids to swallow. For a full detailed report, see report by the speech pathologist. CONCLUSION: No episodes of aspiration observed. Naif Abraham MD on August 18, 2017 at 11:30 Board Certified Radiologist. This report was verified electronically.
== END ==
LOC: HRAD 09:54
PROVIDERS: ATTEND Family Medicine
DX: R13.10 Dysphagia, unspecified (principal)
CPT/HCPCS: 74230; 92611; G8996; G8997; G8998

== ENCOUNTER 2017-10-07 11:38 | Emergency (ER) | payer MEDICARE ==
[~2017-10-07] VITALS: Ht 160 cm; Wt 75.0 kg
[2017-10-07 11:41] VITALS: BP 159/79; PULSE 96; RESP 16; TEMP 97.8; O2SAT 96
[2017-10-07] MEDS ORDERED: PERC5TAB12 PO (11:50)
[2017-10-07 11:53] VITALS: BP 130/68; PULSE 85; RESP 16; O2SAT 98
--- NOTE | 2017-10-07 11:53 | PD ---
HPI Chief Complaint: Abdominal Pain Time Seen by Provider: 11:47 Travel History International Travel<30 days: No Contact w/Intl Traveler<30days: No Traveled to known affect area: No History of Present Illness HPI 76-year-old female with history of CAD, asthma, chronic kidney disease, diabetes , status post nephrectomy following diagnosis of renal cancer, presents emergency department for evaluation of lower abdominal pain 2 days. Patient states started on the left and has extended to the right. She feels like the mid to right side is more tender. She reports that one week ago she had an episode of blood clots in her stool. She states she has had another episode of this today. She denies any fever or chills. She denies any chest pain or tightness. She denies any other symptoms at this time. Patient has had diverticulitis in the past but has not had a flare for several years. She has no other symptoms to report. PFSH Past Medical History Hx Anticoagulant Therapy: Yes Arthritis: Yes Asthma: Yes Blood Disorders: No Anxiety: Yes Cancer: Yes (SKIN, kidney) Cardiovascular Problems: Yes High Cholesterol: Yes Chemotherapy: No Chest Pain: No Congestive Heart Failure: No Diabetes: Yes Patient Takes Glucophage: No Diminished Hearing: No Diverticulitis: Yes Deep Vein Thrombosis: Yes (PE's x 3) Endocrine: Yes Gastrointestinal Disorders: Yes GERD: Yes Glaucoma: Yes Genitourinary: Yes Hepatitis: No Hiatal Hernia: Yes Hypertension: Yes Immune Disorder: No Kidney Stones: No Musculoskeletal: Yes Neurologic: Yes (SPINAL STENOSIS) Psychiatric: Yes Respiratory: Yes Integumentary: No Immunizations Current: Yes (She thinks she had pneu vac but is unsure) Radiation Therapy: No Renal Failure: Yes (decreased kidney function since 2006) Thyroid Disease: Yes (HYPO) Tetanus Vaccination: < 5 Years Influenza Vaccination: No ?: Not Menopausal: Yes Past Surgical History Abdominal Surgery: Yes (MADDIE) Cholecystectomy: Yes Eye Surgery: Yes (CATARACTS WITH IMPLANTS) Genitourinary Surgery: Yes (Stent placement and removal; left kidney removed) Thoracic Surgery: No Other Surgery: Yes (GALLBLADDER) Social History Alcohol Use: No Tobacco Use: No (quit in 1996 1 1/2 ppd of cigs) Substance Use: No Allergies-Medications (Allergen,Severity, Reaction): Coded Allergies: egg (Unverified Allergy, Severe, Anaphylaxis, 10/07/17) penicillin G (Unverified Allergy, Severe, Anaphylaxis, 10/07/17) latex (Verified Allergy, Unknown, 10/07/17) Reported Meds & Prescriptions Reported Meds & Active Scripts Active Bactrim DS (Sulfamethoxazole-Trimethoprim) 800-160 Mg Tab 1 Tab PO BID Flagyl (Metronidazole) 500 Mg Tab 500 Mg PO TID 10 Days Sodium Polystyrene Sulfonate Liq (Sodium Polystyrene Sulfonate) 15 Gm/60 Ml Susp 15 Gm PO DAILY 7 Days Reported Percocet (Oxycodone-Acetaminophen) 5-325 mg Tab 1 Tab PO Q6H PRN Singulair (Montelukast Sodium) 10 Mg Tab 10 Mg PO HS Multiple Vitamin 1 Tab 1 Tab PO DAILY Aspirin Children's (Aspirin) 81 Mg Chew 81 Mg CHEW DAILY Zetia (Ezetimibe) 10 Mg Tab 10 Mg PO DAILY Xalatan Opth Drops (Latanoprost) 0.005% Drops 1 Drop EACH EYE HS Vitamin D-1000 (Cholecalciferol) 1,000 Unit Tab 2,000 Units PO DAILY Vitamin B12 (Cyanocobalamin (Vitamin B-12)) 2,500 Mcg Tab.chew Triamterene-Hydrochlorothiazide 37.5-25 Mg Cap 1 Cap PO DAILY Synthroid (Levothyroxine Sodium) 75 Mcg Tab 75 Mcg PO DAILY Restasis Opth (Cyclosporine Opth) 0.05% Emul 1 Drop EACH EYE BID Pramipexole (Pramipexole Dihydrochloride) 0.5 Mg Tab 0.5 Mg PO BID Magnesium Oxide 250 Mg Tab 250 Mg PO DAILY Fenofibrate 145 Mg Tab 145 Mg PO DAILY Metoclopramide (Metoclopramide HCl) 5 Mg Tab 5 Mg PO QID Review of Systems Except as stated in HPI: all other systems reviewed are Neg Physical Exam Narrative GENERAL: Well-nourished female patient, in no acute distress SKIN: Focused skin assessment warm/dry. HEAD: Atraumatic. Normocephalic. EYES: Pupils equal and round. No scleral icterus. No injection or drainage. ENT: No nasal bleeding or discharge. Mucous membranes pink and moist. NECK: Trachea midline. No JVD. CARDIOVASCULAR: Regular rate and rhythm. No murmur appreciated. RESPIRATORY: No accessory muscle use. Clear to auscultation. Breath sounds equal bilaterally. GASTROINTESTINAL: Abdomen soft, nondistended. Tenderness to palpation along the lower abdomen. Mild guarding. No rebound tenderness. Hepatic and splenic margins not palpable. MUSCULOSKELETAL: No obvious deformities. No clubbing. No cyanosis. No edema. NEUROLOGICAL: Awake and alert. No obvious cranial nerve deficits. Motor grossly within normal limits. Normal speech. PSYCHIATRIC: Appropriate mood and affect; insight and judgment normal. Data Data Last Documented VS Vital Signs Date Time Temp Pulse Resp B/P (MAP) Pulse Ox O2 Delivery O2 Flow Rate FiO2 10/07/17 16:11 10/07/17 15:46 75 14 98 Room Air 10/07/17 11:41 97.8 Orders Orders Complete Blood Count With Diff (10/07/17 12:04) Comprehensive Metabolic Panel (10/07/17 12:04) Lipase (10/07/17 12:04) Prothrombin Time / Inr (Pt) (10/07/17 12:04) Act Partial Throm Time (Ptt) (10/07/17 12:04) Urinalysis - C+S If Indicated (10/07/17 12:04) Iv Access Insert/Monitor (10/07/17 12:04) Ecg Monitoring (10/07/17 12:04) Oximetry (10/07/17 12:04) Sodium Chloride 0.9% Flush (Ns Flush) (10/07/17 12:15) Ct Abd/Pel W/O Iv Contrast (10/07/17 ) Ed Discharge Order (10/07/17 15:49) Labs Laboratory Tests Test 10/07/17 12:00 10/07/17 12:50 White Blood Count 12.9 TH/MM3 Red Blood Count 4.24 MIL/MM3 Hemoglobin 11.9 GM/DL Hematocrit 36.6 % Mean Corpuscular Volume 86.4 FL Mean Corpuscular Hemoglobin 28.1 PG Mean Corpuscular Hemoglobin Concent 32.6 % Red Cell Distribution Width 15.4 % Platelet Count 383 TH/MM3 Mean Platelet Volume 9.3 FL Neutrophils (%) (Auto) 74.5 % Lymphocytes (%) (Auto) 16.8 % Monocytes (%) (Auto) 5.9 % Eosinophils (%) (Auto) 2.2 % Basophils (%) (Auto) 0.6 % Neutrophils # (Auto) 9.6 TH/MM3 Lymphocytes # (Auto) 2.2 TH/MM3 Monocytes # (Auto) 0.8 TH/MM3 Eosinophils # (Auto) 0.3 TH/MM3 Basophils # (Auto) 0.1 TH/MM3 CBC Comment DIFF FINAL Differential Comment Prothrombin Time 10.1 SEC Prothromb Time International Ratio 1.0 RATIO Activated Partial Thromboplast Time 25.2 SEC Blood Urea Nitrogen 44 MG/DL Creatinine 2.82 MG/DL Random Glucose 103 MG/DL Total Protein 8.7 GM/DL Albumin 3.4 GM/DL Calcium Level 9.9 MG/DL Alkaline Phosphatase 69 U/L Aspartate Amino Transf (AST/SGOT) 31 U/L Alanine Aminotransferase (ALT/SGPT) 32 U/L Total Bilirubin 0.3 MG/DL Sodium Level 139 MEQ/L Potassium Level 4.7 MEQ/L Chloride Level 106 MEQ/L Carbon Dioxide Level 23.0 MEQ/L Anion Gap 10 MEQ/L Estimat Glomerular Filtration Rate 16 ML/MIN Lipase 175 U/L Urine Color YELLOW Urine Turbidity CLEAR Urine pH 6.0 Urine Specific Adams 1.008 Urine Protein NEG mg/dL Urine Glucose (UA) NEG mg/dL Urine Ketones NEG mg/dL Urine Occult Blood NEG Urine Nitrite NEG Urine Bilirubin NEG Urine Urobilinogen LESS THAN 2 mg/dL Urine Leukocyte Esterase NEG Urine RBC LESS THAN 1 /hpf Urine WBC LESS THAN 1 /hpf Urine Squamous Epithelial Cells 1 /hpf Microscopic Urinalysis Comment CULT NOT INDICATED MDM Medical Decision Making Medical Screen Exam Complete: Yes Emergency Medical Condition: Yes Medical Record Reviewed: Yes Differential Diagnosis Colitis versus diverticulitis versus appendicitis versus UTI versus metastatic disease Narrative Course 76-year-old female presents emergency department for evaluation of lower abdominal pain. Patient has also had associated blood in her stool. She is Hemoccult stool positive. Laboratory Tests Test 10/07/17 12:00 10/07/17 12:50 White Blood Count 12.9 TH/MM3 Red Blood Count 4.24 MIL/MM3 Hemoglobin 11.9 GM/DL Hematocrit 36.6 % Mean Corpuscular Volume 86.4 FL Mean Corpuscular Hemoglobin 28.1 PG Mean Corpuscular Hemoglobin Concent 32.6 % Red Cell Distribution Width 15.4 % Platelet Count 383 TH/MM3 Mean Platelet Volume 9.3 FL Neutrophils (%) (Auto) 74.5 % Lymphocytes (%) (Auto) 16.8 % Monocytes (%) (Auto) 5.9 % Eosinophils (%) (Auto) 2.2 % Basophils (%) (Auto) 0.6 % Neutrophils # (Auto) 9.6 TH/MM3 Lymphocytes # (Auto) 2.2 TH/MM3 Monocytes # (Auto) 0.8 TH/MM3 Eosinophils # (Auto) 0.3 TH/MM3 Basophils # (Auto) 0.1 TH/MM3 CBC Comment DIFF FINAL Differential Comment Prothrombin Time 10.1 SEC Prothromb Time International Ratio 1.0 RATIO Activated Partial Thromboplast Time 25.2 SEC Blood Urea Nitrogen 44 MG/DL Creatinine 2.82 MG/DL Random Glucose 103 MG/DL Total Protein 8.7 GM/DL Albumin 3.4 GM/DL Calcium Level 9.9 MG/DL Alkaline Phosphatase 69 U/L Aspartate Amino Transf (AST/SGOT) 31 U/L Alanine Aminotransferase (ALT/SGPT) 32 U/L Total Bilirubin 0.3 MG/DL Sodium Level 139 MEQ/L Potassium Level 4.7 MEQ/L Chloride Level 106 MEQ/L Carbon Dioxide Level 23.0 MEQ/L Anion Gap 10 MEQ/L Estimat Glomerular Filtration Rate 16 ML/MIN Lipase 175 U/L Urine Color YELLOW Urine Turbidity CLEAR Urine pH 6.0 Urine Specific Adams 1.008 Urine Protein NEG mg/dL Urine Glucose (UA) NEG mg/dL Urine Ketones NEG mg/dL Urine Occult Blood NEG Urine Nitrite NEG Urine Bilirubin NEG Urine Urobilinogen LESS THAN 2 mg/dL Urine Leukocyte Esterase NEG Urine RBC LESS THAN 1 /hpf Urine WBC LESS THAN 1 /hpf Urine Squamous Epithelial Cells 1 /hpf Microscopic Urinalysis Comment CULT NOT INDICATED Last Impressions Abdomen/Pelvis CT 10/07/17 0000 Signed Impressions: CONCLUSION: 1. Prominent colonic diverticulosis with subtle inflammatory change in the clarice y proximal sigmoid colon which may reflect early acute diverticulitis in the ap propriate clinical setting. 2. Otherwise, no definitive findings to explain patient's abdominal pain. 3. Normal appendix. 4. Status post left nephrectomy without evidence for mass in the nephrectomy b ed. Findings are discussed with my attending physician. Patient will be started on oral Bactrim and Flagyl. She is encouraged to follow-up with a primary care provider and GI specialist. She agrees to return immediately with any acute worsening of symptoms. Diagnosis Primary Impression: Diverticulitis Referrals: Primary Care Physician Patient Instructions: Diverticulitis (ED), Diverticulitis Diet (ED), General Instructions Additional Instructions: Follow-up with a primary care provider Return immediately with acute worsening of symptoms Med/Other Pt SpecificInfo: Prescription(s) given Scripts Sulfamethoxazole-Trimethoprim (Bactrim DS) 800-160 Mg Tab 1 TAB PO BID for Infection, #20 TAB 0 Refills Prov: Kendra Madrigal 10/07/17 Metronidazole (Flagyl) 500 Mg Tab 500 MG PO TID for Infection for 10 Days, TAB 0 Refills Prov: Kendra Madrigal 10/07/17 Disposition: 01 DISCHARGE HOME Condition: Stable Kendra Madrigal Oct 07, 2017 11:53
[2017-10-07] MEDS ORDERED: SODIUM CHLORIDE 0.9% FLUSH 10 ML FLUSH IV FLUSH PRN (12:15)
[2017-10-07 12:32] LABS: AUTOMATED NEUTROPHIL # 9.6 TH/MM3 (1.8-7.7); BASOPHIL # 0.1 TH/MM3 (0-0.2); BASOPHIL % 0.6 % (0.0-2.0); EOSINOPHIL # 0.3 TH/MM3 (0-0.4); EOSINOPHIL % 2.2 % (0.0-4.0); HEMATOCRIT 36.6 % (35.0-46.0); HEMOGLOBIN 11.9 GM/DL (11.6-15.3); LYMPH % 16.8 % (9.0-44.0); LYMPHOCYTE # 2.2 TH/MM3 (1.0-4.8); MEAN CELL VOLUME 86.4 FL (80.0-100.0); MEAN CORPUSCULAR HEMOGLOBIN 28.1 PG (27.0-34.0); MEAN CORPUSCULAR HGB CONC 32.6 % (32.0-36.0); MEAN PLATELET VOLUME 9.3 FL (7.0-11.0); MONO % 5.9 % (0.0-8.0); MONOCYTE # 0.8 TH/MM3 (0-0.9); NEUT % 74.5 % (16.0-70.0); PLATELET COUNT 383 TH/MM3 (150-450); RED BLOOD COUNT 4.24 MIL/MM3 (4.00-5.30); RED CELL DISTRIBUTION WIDTH 15.4 % (11.6-17.2); WHITE BLOOD COUNT 12.9 TH/MM3 (4.0-11.0)
[2017-10-07 12:38] LABS: PROTHROMBIN TIME - PATIENT 10.1 SEC (9.8-11.6)
[2017-10-07 12:51] LABS: ALBUMIN 3.4 GM/DL (3.4-5.0); ALT (GPT) 32 U/L (10-53); AST (GOT) 31 U/L (15-37); BLOOD UREA NITROGEN 44 MG/DL (7-18); CALCIUM 9.9 MG/DL (8.5-10.1); CHLORIDE 106 MEQ/L (98-107); CREATININE 2.82 MG/DL (0.50-1.00); GLOMERULAR FILTRATION RATE 16 ML/MIN (>89); GLUCOSE,RANDOM 103 MG/DL (74-106); SODIUM (NA) 139 MEQ/L (136-145)
[2017-10-07 12:53] LABS: ALKALINE PHOSPHATASE 69 U/L (45-117); TOTAL BILIRUBIN ADULT 0.3 MG/DL (0.2-1.0); TOTAL PROTEIN 8.7 GM/DL (6.4-8.2)
--- NOTE | 2017-10-07 12:54 | PD ---
Physical Exam Narrative I, Dr. Jarvis, have reviewed the advance practice practitioner's documentation and am in agreement, met with the patient face to face, made the diagnosis, and the medical decision making was done by me. *My assessment and Findings: Please see mid-level provider note for full history and physical and disposition per presents to the emergency department complaining of 2 days of abdominal pain. Described as being suprapubic with radiation up to the epigastric area. New onset, intermittent, aggravated by pressing on it, no alleviating factors. Last dysuria, urinary frequency, fever , chills, nausea, vomiting. Data Data Last Documented VS Vital Signs Date Time Temp Pulse Resp B/P (MAP) Pulse Ox O2 Delivery O2 Flow Rate FiO2 10/07/17 11:53 85 16 130/68 (88) 98 Room Air 10/07/17 11:41 97.8 Orders Orders Complete Blood Count With Diff (10/07/17 12:04) Comprehensive Metabolic Panel (10/07/17 12:04) Lipase (10/07/17 12:04) Prothrombin Time / Inr (Pt) (10/07/17 12:04) Act Partial Throm Time (Ptt) (10/07/17 12:04) Urinalysis - C+S If Indicated (10/07/17 12:04) Ct Abd/Pel W Iv Contrast(Rout) (10/07/17 12:04) Iv Access Insert/Monitor (10/07/17 12:04) Ecg Monitoring (10/07/17 12:04) Oximetry (10/07/17 12:04) Sodium Chloride 0.9% Flush (Ns Flush) (10/07/17 12:15) Labs Laboratory Tests Test 10/07/17 12:00 White Blood Count 12.9 TH/MM3 Red Blood Count 4.24 MIL/MM3 Hemoglobin 11.9 GM/DL Hematocrit 36.6 % Mean Corpuscular Volume 86.4 FL Mean Corpuscular Hemoglobin 28.1 PG Mean Corpuscular Hemoglobin Concent 32.6 % Red Cell Distribution Width 15.4 % Platelet Count 383 TH/MM3 Mean Platelet Volume 9.3 FL Neutrophils (%) (Auto) 74.5 % Lymphocytes (%) (Auto) 16.8 % Monocytes (%) (Auto) 5.9 % Eosinophils (%) (Auto) 2.2 % Basophils (%) (Auto) 0.6 % Neutrophils # (Auto) 9.6 TH/MM3 Lymphocytes # (Auto) 2.2 TH/MM3 Monocytes # (Auto) 0.8 TH/MM3 Eosinophils # (Auto) 0.3 TH/MM3 Basophils # (Auto) 0.1 TH/MM3 CBC Comment DIFF FINAL Differential Comment Prothrombin Time 10.1 SEC Prothromb Time International Ratio 1.0 RATIO Activated Partial Thromboplast Time 25.2 SEC Blood Urea Nitrogen 44 MG/DL Creatinine 2.82 MG/DL Random Glucose 103 MG/DL Albumin 3.4 GM/DL Calcium Level 9.9 MG/DL Aspartate Amino Transf (AST/SGOT) 31 U/L Alanine Aminotransferase (ALT/SGPT) 32 U/L Sodium Level 139 MEQ/L Potassium Level 4.7 MEQ/L Chloride Level 106 MEQ/L Carbon Dioxide Level 23.0 MEQ/L Anion Gap 10 MEQ/L Estimat Glomerular Filtration Rate 16 ML/MIN Lipase 175 U/L [facility] Supervised Visit with CHRIS: Yes Narrative Course Patient presents to the emergency department complaining of abdominal pain. 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 Diagnosis Primary Impression: Abdominal pain Qualified Codes: R10.30 - Lower abdominal pain, unspecified Jackie Jarvis MD Oct 07, 2017 12:54
[2017-10-07 13:11] LABS: BILIRUBIN, URINE NEG (NEG); BLOOD, URINE NEG (NEG); GLUCOSE,URINE NEG (NEG); KETONE, URINE NEG (NEG); NITRITE,URINE NEG (NEG); SQUAMOUS EPITHELIAL CELL URINE 1 /hpf (0-5); URINE COLOR YELLOW (YELLW/STRAW); URINE LEUKOCYTE ESTERASE NEG (NEG)
[2017-10-07 14:00] VITALS: BP 155/67; PULSE 75; RESP 14; O2SAT 98
--- NOTE | 2017-10-07 15:45 | RADRPT ---
EXAM DATE: 10/07/2017 1:40 PM EDT AGE/SEX: 76 years / Female INDICATIONS: Lower abdominal pain for two days. CLINICAL DATA: This is the patient's initial encounter. Patient reports that signs and symptoms have been present for 2 days and indicates a pain score of 5/10. MEDICAL/SURGICAL HISTORY: Cardiovascular disease. Hypertension. Hiatal hernia. Renal failure. Diabetes. Renal cancer. Cholecystectomy. Nephrectomy, left. RADIATION DOSE: 8.63 CTDI (mGy) COMPARISON: POI, CTA ABDOMEN AND PELVIS, 01/13/2017. . TECHNIQUE: Multiple contiguous axial images were obtained through the abdomen. Images were obtained using multiple row detector helical technique. Using automated exposure control and adjustment of the mA and/or kV according to patient size, radiation dose was kept as low as reasonably achievable to o btain optimal diagnostic quality images. DICOM format image data is available electronically for rev iew and comparison. FINDINGS: LOWER LUNGS: The visualized lower lungs are clear. LIVER: The liver has a homogeneous density without space-occupying lesion. Prominence of the intrahe patic bile ducts likely reflecting reservoir effect following cholecystectomy. SPLEEN: Homogeneous density without enlargement. PANCREAS: Unremarkable without mass or calcification. KIDNEYS: Postsurgical features are left nephrectomy. Right kidney is normal in appearance without ev idence for contour deforming abnormality, radiopaque renal calculi or hydronephrosis. ADRENAL GLANDS: Unremarkable. AORTA: Described calcifications without aortic aneurysm. BOWEL/MESENTERY: Appendix is visualized and normal in appearance. Moderate sigmoid diverticulosis an d moderate scattered colonic diverticula. Subtle stranding in the very proximal sigmoid colon may ref lect early inflammatory change. Again noted is a large dominant air collection adjacent to the distal sigmoid colon similar to previous exam which likely reflects a large diverticulum. ABDOMINAL WALL: Intact. RETROPERITONEUM: No evidence of adenopathy in the retrocrural, para-aortic, or deep pelvic regions. BLADDER: Contours are smooth. REPRODUCTIVE: No abnormal masses or calcifications seen. BONY STRUCTURES: Unremarkable. CONCLUSION: 1. Prominent colonic diverticulosis with subtle inflammatory change in the very proximal sigmoid col on which may reflect early acute diverticulitis in the appropriate clinical setting. 2. Otherwise, no definitive findings to explain patient's abdominal pain. 3. Normal appendix. 4. Status post left nephrectomy without evidence for mass in the nephrectomy bed. Electronically signed by: Jose Joshi MD 10/07/2017 3:44 PM EDT
[2017-10-07 15:46] VITALS: BP 166/72; PULSE 75; RESP 14; O2SAT 98
[2017-10-07] MEDS ORDERED: BACT800T5 PO (15:51)
[2017-10-07] MEDS ORDERED: METR-1 PO (15:51)
== END 2017-10-07 16:11 | disposition home or self-care (01) ==
LOC: NEPC 11:38
DX: K57.92 Diverticulitis of intestine, part unspecified, without perforation or abscess without bleeding (principal); E11.22 Type 2 diabetes mellitus with diabetic chronic kidney disease; I12.9 Hypertensive chronic kidney disease with stage 1 through stage 4 chronic kidney disease, or unspecified chronic kidney disease; N18.9 Chronic kidney disease, unspecified; E03.9 Hypothyroidism, unspecified; E78.00 Pure hypercholesterolemia, unspecified; Z87.891 Personal history of nicotine dependence; Z85.528 Personal history of other malignant neoplasm of kidney; Z90.5 Acquired absence of kidney
CPT/HCPCS: 74176; 80053; 81001; 83690; 85025; 85610; 85730

== ENCOUNTER 2018-01-21 14:02 | Observation (INO) ==
[2018-01-21 14:29] LABS: Baso % (Auto) 0.4 % (0.0-2.0); Eos # (Auto) 0.1 th/mm3 (0.0-0.4); Eos % (Auto) 0.6 % (0.0-4.0); Hematocrit 38.1 % (35.0-46.0); Hemoglobin 12.7 gm/dL (11.6-15.3); Lymph % (Auto) 11.4 % (9.0-44.0); Mean Corpuscular HGB Conc 33.3 % (32.0-36.0); Mean Corpuscular Hemoglobin 29.5 pg (27.0-34.0); Mean Corpuscular Volume 88.4 fL (80.0-100.0); Mean Platelet Volume 9.1 fL (7.0-11.0); Mono % (Auto) 0.4 % (0.0-8.0); Neut % (Auto) 87.2 % (16.0-70.0); Platelet Count 379 th/mm3 (150-450); Red Blood Count 4.31 mil/mm3 (4.00-5.30); Red Cell Distribution Width 15.1 % (11.6-17.2); White Blood Count 9.1 th/mm3 (4.0-11.0)
[2018-01-21 14:39] LABS: Chloride 101 meq/L (98-107); Potassium 4.2 meq/L (3.5-5.1); Sodium 136 meq/L (136-145)
[2018-01-21 14:42] LABS: Calcium 9.2 mg/dL (8.5-10.1)
[2018-01-21 14:43] LABS: Anion Gap 14 meq/L (5-15); Blood Urea Nitrogen 35 mg/dL (7-18); Carbon Dioxide 21.2 meq/L (21.0-32.0); Glucose,Random 117 mg/dL (74-106)
[2018-01-21] MEDS ORDERED: Acetaminophen 325 MG Tablet PO ONE (14:44)
[2018-01-21 14:46] LABS: Alanine Aminotransferase 23 U/L (10-53); Aspartate Aminotransferase 25 U/L (15-37); Glomerular Filtration Rate 19 mL/min (>89)
[2018-01-21 14:49] LABS: Alkaline Phosphatase 84 U/L (45-117)
--- NOTE | 2018-01-21 15:12 | ED ---
HPI General Chief Complaint: Fever Stated Complaint: Chest pain Time Seen by Provider: 01/21/18 14:14 Source: patient and family Mode of arrival: ambulatory Limitations: no limitations History of Present Illness HPI Narrative: Patient presents with history of suprapubic abdominal pain, patient presented writhing in pain with nausea and vomiting. On presentation patient states she had frequency of urination. And localized tenderness in the midline and suprapubic region. Pain is described as constant in nature. Patient went to the [facility] yesterday and waited in the emergency department but left without being seen. Related Data Home Medications Medication Instructions Recorded Confirmed Centrum Silver 1 tab PO DAILY 01/21/18 01/21/18 Doc-Q-Lace 100 mg PO BID 01/21/18 01/21/18 Iron (ferrous sulfate) 325 mg PO DAILY 01/21/18 01/21/18 Miralax 1 packet PO DAILY 01/21/18 01/21/18 Probiotic 1 cap PO DAILY 01/21/18 01/21/18 Restasis 1 drop EACH EYE BID 01/21/18 01/21/18 Symax Duotab 1 tab PO DAILY 01/21/18 01/21/18 Vitamin B-12 500 mg PO DAILY 01/21/18 01/21/18 aspirin [Aspirin Childrens] 1 tab PO DAILY 01/21/18 01/21/18 biotin 1 tab PO DAILY 01/21/18 01/21/18 chlorthalidone 1 tab PO DAILY 01/21/18 01/21/18 cholecalciferol (vitamin D3) 1 cap PO DAILY 01/21/18 01/21/18 [Vitamin D3] diclofenac sodium [Voltaren] 1 dose TOPICAL QID 01/21/18 01/21/18 ezetimibe [Zetia] 1 tab PO DAILY 01/21/18 01/21/18 fenofibrate 145 mg PO DAILY 01/21/18 01/21/18 latanoprost [Xalatan] 1 drp OPHTHALMIC (EYE) QPM 01/21/18 01/21/18 levothyroxine 1 cap PO DAILY 01/21/18 01/21/18 magnesium 1 tab PO DAILY 01/21/18 01/21/18 metoclopramide HCl 5 mg PO DAILY 01/21/18 01/21/18 oxycodone-acetaminophen 1 tab PO BID 01/21/18 01/21/18 pramipexole 1 tab PO DAILY 01/21/18 01/21/18 ranitidine HCl 150 mg PO DAILY 01/21/18 01/21/18 trazodone 25 mg PO HS 01/21/18 01/21/18 turmeric root extract 500 mg PO DAILY 01/21/18 01/21/18 Allergies Allergy/AdvReac Type Severity Reaction Status Date / Time egg Allergy Severe Anaphylaxis Verified 01/21/18 14:36 latex Allergy Severe Rash Verified 01/21/18 14:36 penicillin G Allergy Severe Anaphylaxis Verified 01/21/18 14:36 Sulfa (Sulfonamide Allergy Severe Anaphylaxis Verified 01/21/18 14:36 Antibiotics) [facility] Medical History Medical History AAA (abdominal aortic aneurysm) (Acute) Anemia (Acute) Back pain (Acute) Diabetes (Acute) Diverticulitis (Acute) GERD (gastroesophageal reflux disease) (Acute) Glaucoma (Acute) Hypothyroid (Acute) Surgical History Surgical History History of nephrectomy (Acute) S/P cholecystectomy (Acute) Social History Social History Second Hand Smoke Exposure: No Smoking Status: Former smoker Tobacco Type: Cigarettes How Often Do You Have a Drink Containing Alcohol: Never Recent Travel in [facility] within the Last 8 Weeks: No Recent Out of Country Travel within the Last 8 Weeks: No Immunization History Tetanus Immunization: >5 Years Exam Narrative Exam Narrative: GENERAL: Patient presents with severe abdominal pain, nausea and vomiting. Alert and oriented SKIN: Focused skin assessment warm/dry. HEAD: Atraumatic. Normocephalic. EYES: Pupils equal and round. No scleral icterus. No injection or drainage. ENT: No nasal bleeding or discharge. Mucous membranes pink and moist. NECK: Trachea midline. No JVD. CARDIOVASCULAR: Regular rate and rhythm. No murmur appreciated. RESPIRATORY: No accessory muscle use. Clear to auscultation. Breath sounds equal bilaterally. Crepitant rales in bases clear with deep inspiration GASTROINTESTINAL: Abdomen soft, however patient has tenderness to right lower quadrant with local rebound. Hepatic and splenic margins not palpable. MUSCULOSKELETAL: No obvious deformities. No clubbing. No cyanosis. No edema. NEUROLOGICAL: Awake and alert. No obvious cranial nerve deficits. Motor grossly within normal limits. Normal speech. PSYCHIATRIC: Appropriate mood and affect; insight and judgment normal. Course Reevaluation(s) Reevaluation #1: localized tenderness to right lower quadrant with rebound. However CT shows diverticulosis but no as evidence of appendicitis. Time: 17:07 Initial Documented Vital Signs Pulse Oximetry 98 01/21/18 14:09 Last Documented Vital Signs Temperature 99 F 01/21/18 15:55 Pulse Rate 87 01/21/18 15:26 Respiratory Rate 18 01/21/18 15:26 Blood Pressure 115/61 01/21/18 15:26 Pulse Oximetry 96 01/21/18 15:26 Medical Decision Making MDM Narrative Medical decision making narrative: Patient presents with history of fever of unknown origin. Patient had temperature of greater than 103 however evaluation at this point shows no nidus for infectious process. However patient does have right lower quadrant tenderness and rebound although the rest of the abdomen is benign. Medical Screen Exam Complete: Yes Emergency Medical Condition: Yes Medical Records Medical records reviewed: Yes I reviewed the patient's medical records. Lab Data Result diagrams: 01/21/18 14:15 01/21/18 14:15 Lab Results 01/21/18 01/21/18 01/21/18 Range/Units 14:15 14:15 14:15 CBC w Diff Auto diff final WBC 9.1 (4.0-11.0) th/mm3 RBC 4.31 (4.00-5.30) mil/mm3 Hgb 12.7 (11.6-15.3) gm/dL Hct 38.1 (35.0-46.0) % MCV 88.4 (80.0-100.0) fL MCH 29.5 (27.0-34.0) pg MCHC 33.3 (32.0-36.0) % RDW 15.1 (11.6-17.2) % Plt Count 379 (150-450) th/mm3 MPV 9.1 (7.0-11.0) fL Neut % (Auto) 87.2 H (16.0-70.0) % Lymph % (Auto) 11.4 (9.0-44.0) % [place] % (Auto) 0.4 (0.0-8.0) % Eos % (Auto) 0.6 (0.0-4.0) % Baso % (Auto) 0.4 (0.0-2.0) % Neut # (Auto) 8.0 H (1.8-7.7) th/mm3 Lymph # (Auto) 1.0 (1.0-4.8) th/mm3 [place] # (Auto) 0.0 (0.0-0.9) th/mm3 Eos # (Auto) 0.1 (0.0-0.4) th/mm3 Baso # (Auto) 0.0 (0.0-0.2) th/mm3 WBC Differential . Differential Comment . Sodium 136 (136-145) meq/L Potassium 4.2 (3.5-5.1) meq/L Chloride 101 (98-107) meq/L Carbon Dioxide 21.2 (21.0-32.0) meq/L Anion Gap 14 (5-15) meq/L BUN 35 H (7-18) mg/dL Creatinine 2.50 H (0.50-1.00) mg/dL Estimated GFR 19 L (>89) mL/min POC Glucose (68-110) mg/dl Random Glucose 117 H (74-106) mg/dL Lactic Acid 5.0 H* (0.4-2.0) mmol/L Calcium 9.2 (8.5-10.1) mg/dL Total Bilirubin 0.6 (0.2-1.0) mg/dL AST 25 (15-37) U/L ALT 23 (10-53) U/L Alkaline Phosphatase 84 (45-117) U/L Total Protein 8.0 (6.4-8.2) g/dL Albumin 3.0 L (3.4-5.0) g/dL Urine Color (Yellw/Straw) Urine Clarity (Clear) Urine pH (5.0-8.5) Ur Specific [place] (1.002-1.035) Urine Protein (Neg-Trace) mg/dL Urine Glucose (UA) (Negative) mg/dL Urine Ketones (Negative) mg/dL Urine Occult Blood (Negative) Urine Nitrate (Negative) Urine Bilirubin (Negative) Urine Urobilinogen (Less than 2) mg/dL Ur Leukocyte Esterase (Negative) Ur Squamous Epith Cells (0-5) /hpf Micro UA Comment Ur Microscopic Review Urine Culture Comments 01/21/18 01/21/18 Range/Units 14:43 15:40 CBC w Diff WBC (4.0-11.0) th/mm3 RBC (4.00-5.30) mil/mm3 Hgb (11.6-15.3) gm/dL Hct (35.0-46.0) % MCV (80.0-100.0) fL MCH (27.0-34.0) pg MCHC (32.0-36.0) % RDW (11.6-17.2) % Plt Count (150-450) th/mm3 MPV (7.0-11.0) fL Neut % (Auto) (16.0-70.0) % Lymph % (Auto) (9.0-44.0) % [place] % (Auto) (0.0-8.0) % Eos % (Auto) (0.0-4.0) % Baso % (Auto) (0.0-2.0) % Neut # (Auto) (1.8-7.7) th/mm3 Lymph # (Auto) (1.0-4.8) th/mm3 [place] # (Auto) (0.0-0.9) th/mm3 Eos # (Auto) (0.0-0.4) th/mm3 Baso # (Auto) (0.0-0.2) th/mm3 WBC Differential Differential Comment Sodium (136-145) meq/L Potassium (3.5-5.1) meq/L Chloride (98-107) meq/L Carbon Dioxide (21.0-32.0) meq/L Anion Gap (5-15) meq/L BUN (7-18) mg/dL Creatinine (0.50-1.00) mg/dL Estimated GFR (>89) mL/min POC Glucose 107 (68-110) mg/dl Random Glucose (74-106) mg/dL Lactic Acid (0.4-2.0) mmol/L Calcium (8.5-10.1) mg/dL Total Bilirubin (0.2-1.0) mg/dL AST (15-37) U/L ALT (10-53) U/L Alkaline Phosphatase (45-117) U/L Total Protein (6.4-8.2) g/dL Albumin (3.4-5.0) g/dL Urine Color Yellow (Yellw/Straw) Urine Clarity Clear (Clear) Urine pH 6.0 (5.0-8.5) Ur Specific [place] 1.025 (1.002-1.035) Urine Protein 100 H (Neg-Trace) mg/dL Urine Glucose (UA) Negative (Negative) mg/dL Urine Ketones Negative (Negative) mg/dL Urine Occult Blood Trace (Negative) Urine Nitrate Negative (Negative) Urine Bilirubin Negative (Negative) Urine Urobilinogen 0.2 (Less than 2) mg/dL Ur Leukocyte Esterase Negative (Negative) Ur Squamous Epith Cells 0-5 (0-5) /hpf Micro UA Comment Culture not ind Ur Microscopic Review Microscopic reviewed Urine Culture Comments Culture not ind Imaging Data Radiologist's impression: Chest X-Ray 01/21/18 14:44 CONCLUSION: No acute intrathoracic disease. Stable exam. Abdomen/Pelvis CT 01/21/18 15:19 CONCLUSION: 1. Scattered diverticulosis of the sigmoid colon without definite inflammatory changes. 2. Status post left nephrectomy. 3. No new or significant changes are seen compared to the prior examination. Discharge Plan Discharge Disposition Patient Disposition: 30 Still Patient Physicians Team ED Provider: Maycol Pitts Primary Care Provider: Erin Roberson Rxs /Orders / Referrals /Forms Prescriptions: No Action latanoprost [Xalatan] 0.005 % Drops 1 drp OPHTHALMIC (EYE) QPM RF: 0 trazodone 50 mg Tablet 25 mg PO HS RF: 0 chlorthalidone 25 mg Tablet 1 tab PO DAILY RF: 0 pramipexole 0.5 mg Tablet 1 tab PO DAILY RF: 0 oxycodone-acetaminophen 10-325 mg Tablet 1 tab PO BID RF: 0 ranitidine HCl 150 mg Tablet 150 mg PO DAILY RF: 0 aspirin [Aspirin Childrens] 81 mg Tablet,Chewable 1 tab PO DAILY RF: 0 magnesium 250 mg Tablet 1 tab PO DAILY RF: 0 ezetimibe [Zetia] 10 mg Tablet 1 tab PO DAILY RF: 0 diclofenac sodium [Voltaren] 1 % Gel 1 dose Topical QID RF: 0 cholecalciferol (vitamin D3) [Vitamin D3] 2,000 unit Capsule 1 cap PO DAILY RF: 0 levothyroxine 75 mcg Capsule 1 cap PO DAILY RF: 0 biotin 1,000 mcg Tablet,Chewable 1 tab PO DAILY RF: 0 Centrum Silver 1 tab PO DAILY RF: 0 Doc-Q-Lace 100 mg PO BID RF: 0 Iron (ferrous sulfate) 325 mg PO DAILY RF: 0 Miralax 1 packet PO DAILY RF: 0 Probiotic 1 cap PO DAILY RF: 0 Restasis 1 drop EACH EYE BID RF: 0 Symax Duotab 1 tab PO DAILY RF: 0 Vitamin B-12 500 mg PO DAILY RF: 0 fenofibrate 145 mg PO DAILY RF: 0 metoclopramide HCl 5 mg PO DAILY RF: 0 turmeric root extract 500 mg PO DAILY RF: 0 Status ED Status: With Doctor
--- NOTE | 2018-01-21 15:16 | XR ---
EXAM DATE: 01/21/2018 2:44 PM EDT AGE/SEX: 77 years / Female INDICATIONS: Fever. Chest pains for 2 years. CLINICAL DATA: This is the patient's initial encounter. Patient reports that signs and symptoms have been present for 1 day and indicates a pain score of 8/10. MEDICAL/SURGICAL HISTORY: . Cardiovascular disease. Hypertension. Hiatal hernia. Renal failure . Diabetes. Renal cancer. Aneurysm. . Cholecystectomy. Nephrectomy, left. COMPARISON: [facility], XR CHEST PA AND LAT, 08/10/2017. . FINDINGS: A single AP view of the chest demonstrates the lungs to be symmetrically aerated without evidence of mass, infiltrate or effusion. The lungs are hyperaerated bilaterally. The cardiomediastinal contours are unremarkable. Osseous structures are intact. CONCLUSION: No acute intrathoracic disease. Stable exam. Electronically signed by: Yuan Coles MD 01/21/2018 3:14 PM EDT
[2018-01-21] MEDS: Sod Chloride 0.9% Inj 1,000 ML IV.SIG SCH ×2 (15:53→17:28)
[2018-01-21 15:57] LABS: Bilirubin,Urine Negative (Negative); Clarity,Urine Clear (Clear); Color,Urine Yellow (Yellw/Straw); Glucose,Urine (UA) Negative (Negative); Leukocyte Esterase,Urine Negative (Negative); Nitrite,Urine Negative (Negative); Specific Gravity,Urine 1.025 (1.002-1.035); Urobilinogen,Urine 0.2 mg/dL (Less than 2)
[2018-01-21 16:06] LABS: Squamous Epithelial Cell,Urine 0-5 /hpf (0-5)
--- NOTE | 2018-01-21 16:06 | CT ---
EXAM DATE: 01/21/2018 3:33 PM EDT AGE/SEX: 77 years / Female INDICATIONS: Abdomen Pain, nausea, vomiting, diarrhea CLINICAL DATA: This is the patient's initial encounter. Patient reports that signs and symptoms have been present for 1 day and indicates a pain score of 6/10. MEDICAL/SURGICAL HISTORY: Aneurysm, abdominal. Anemia. Gastroesophageal reflux disease. Diab etic, Diverticulitis, Hypothyroid Cholecystectomy. Nephrectomy RADIATION DOSE: 19.71 CTDI (mGy) COMPARISON: [facility] [place]BD[place]EL[place] W/O CONTRAST, 10/07/2017. . TECHNIQUE: Multiple contiguous axial images were obtained through the abdomen. Images were obtained using multiple row detector helical technique. Using automated exposure control and adjustment of the mA and/or kV according to patient size, radiation dose was kept as low as reasonably achievable to o btain optimal diagnostic quality images. DICOM format image data is available electronically for rev iew and comparison. Lack of IV contrast limits the diagnosis for certain organ pathology. FINDINGS: Lower Lungs: The visualized lower lungs are clear. Liver: The liver has a homogeneous density without space-occupying lesion. There is no dilation of th e biliary tree. The gallbladder has been surgically removed. Spleen: Homogeneous density without enlargement. Pancreas: Unremarkable without mass or calcification. Kidneys: Left nephrectomy. The right kidney is unremarkable and stable. Adrenal Glands: Unremarkable. Aorta: The aorta and proximal iliac vessels are grossly unremarkable without aneurysmal dilation. Bowel/Mesentery: The bowel loops are grossly unremarkable. The cecum and sigmoid colon have a normal configuration. Scattered diverticulosis of the sigmoid colon without definite inflammatory changes. No free fluid or loculated fluid collections. There is a moderate amount of stool throughout the colo n. The appendix is unremarkable. Abdominal Wall: Intact. Retroperitoneum: No evidence of adenopathy in the retrocrural, para-aortic, or deep pelvic regions. Bladder: Contours are smooth. Reproductive Organs: No abnormal masses or calcifications seen. Inguinal: The inguinal region is unremarkable without evidence of adenopathy. Bony Structures: Stable degenerative changes. CONCLUSION: 1. Scattered diverticulosis of the sigmoid colon without definite inflammatory changes. 2. Status post left nephrectomy. 3. No new or significant changes are seen compared to the prior examination. Electronically signed by: Yuan Coles MD 01/21/2018 4:05 PM EDT
--- NOTE | 2018-01-21 17:03 | P.HP ---
History of Present Illness Primary Care Physician: Erin Roberson MD Chief Complaint: Abdominal pain and fever History of Present Illness: This is a pleasant 77-year-old female patient with a known medical history of diverticulosis, history of nephrectomy, hypothyroidism, diabetes and chronic back pain who presented to the ED with complaints of abdominal pain. Patient states over the past couple days patient's had diffuse abdominal pain especially in her lower pelvis area that is intermittent. She states it is aching in nature and comes and goes. Patient also admits to shaking and generalized malaise over the past few days as well as headache. She does admit to subjective fevers at home although did not take her temperature. Fever on presentation was 103. Patient does see Dr. Roberson PCP, denies any new changes to her medicines. Patient did undergo a left nephrectomy in March of last year, follows with nephrology, Dr. Dixon. Patient denies any recent dysuria. She does admit to soft stools, denies any diarrhea. - Diagnosis (1) Fever (2) Abdominal pain (3) Diverticulosis Review of Systems All other systems reviewed negative except as stated in HPI PMFSH - History History Provided By: Patient - Medical History Medical History: Medical History (Last Reviewed 01/21/18 @ 18:04 by Doreen Huggins) AAA (abdominal aortic aneurysm) Anemia Back pain Diabetes Diverticulitis GERD (gastroesophageal reflux disease) Glaucoma Hypothyroid - Surgical History Surgical History: Surgical History (Last Reviewed 01/21/18 @ 18:04 by Doreen Huggins) History of nephrectomy S/P cholecystectomy - Family History Family History: Family History (Last Updated 01/21/18 @ 18:04 by Doreen Huggins) Other Family history non-contributory - Social History I have reviewed the patient's Social History: Yes - Tobacco History Second Hand Smoke Exposure: No Tobacco Use In Past 30 Days: No Smoking Status: Former smoker Tobacco Type: Cigarettes - Alcohol History How Often Do You Have a Drink Containing Alcohol: Never - Travel History Recent Travel in the [place] Within the Last 8 Weeks: No Recent Travel Out of the Country Within the Last 8 Weeks: No - Immunization History Tetanus Immunization: >5 Years Medications and Allergies Active Medications: Active Medications Sodium Chloride (Ns Inj) 1,000 mls @ 0 mls/hr IV.SIG BOLUS ADRIAN Stop: 01/22/18 15:31 Last Infusion: 01/21/18 17:01 Dose: Infused Allergies Allergy/AdvReac Type Severity Reaction Status Date / Time egg Allergy Severe Anaphylaxis Verified 01/21/18 14:36 latex Allergy Severe Rash Verified 01/21/18 14:36 penicillin G Allergy Severe Anaphylaxis Verified 01/21/18 14:36 Sulfa (Sulfonamide Allergy Severe Anaphylaxis Verified 01/21/18 14:36 Antibiotics) Home Medications Medication Instructions Recorded Confirmed Type Centrum Silver 1 tab PO DAILY 01/21/18 01/21/18 History Doc-Q-Lace 100 mg PO BID 01/21/18 01/21/18 History Iron (ferrous sulfate) 325 mg PO DAILY 01/21/18 01/21/18 History Miralax 1 packet PO DAILY 01/21/18 01/21/18 History Probiotic 1 cap PO DAILY 01/21/18 01/21/18 History Restasis 1 drop EACH EYE BID 01/21/18 01/21/18 History Symax Duotab 1 tab PO DAILY 01/21/18 01/21/18 History Vitamin B-12 500 mg PO DAILY 01/21/18 01/21/18 History aspirin [Aspirin Childrens] 1 tab PO DAILY 01/21/18 01/21/18 History biotin 1 tab PO DAILY 01/21/18 01/21/18 History chlorthalidone 1 tab PO DAILY 01/21/18 01/21/18 History cholecalciferol (vitamin D3) 1 cap PO DAILY 01/21/18 01/21/18 History [Vitamin D3] diclofenac sodium [Voltaren] 1 dose TOPICAL QID 01/21/18 01/21/18 History ezetimibe [Zetia] 1 tab PO DAILY 01/21/18 01/21/18 History fenofibrate 145 mg PO DAILY 01/21/18 01/21/18 History latanoprost [Xalatan] 1 drp OPHTHALMIC (EYE) QPM 01/21/18 01/21/18 History levothyroxine 1 cap PO DAILY 01/21/18 01/21/18 History magnesium 1 tab PO DAILY 01/21/18 01/21/18 History metoclopramide HCl 5 mg PO DAILY 01/21/18 01/21/18 History oxycodone-acetaminophen 1 tab PO BID 01/21/18 01/21/18 History pramipexole 1 tab PO DAILY 01/21/18 01/21/18 History ranitidine HCl 150 mg PO DAILY 01/21/18 01/21/18 History trazodone 25 mg PO HS 01/21/18 01/21/18 History turmeric root extract 500 mg PO DAILY 01/21/18 01/21/18 History Exam Vital signs: Vital Signs 01/21/18 14:09 01/21/18 14:29 01/21/18 14:44 Temperature 103 F H Pulse Rate 113 H 90 Respiratory Rate 26 H Blood Pressure 145/65 H Pulse Oximetry 98 98 98 01/21/18 15:26 01/21/18 15:55 Temperature 99 F Pulse Rate 87 Respiratory Rate 18 Blood Pressure 115/61 Pulse Oximetry 96 Intake & Output 01/20/18 01/21/18 01/21/18 18:59 06:59 18:59 Intake Total 1100 / 1100 Balance 1100 / 1100 Weight 72.121 kg Intake: IV 1100 / 1100 Azactam Inj 1,000 MG In NS Inj 100 / 100 100 ML @ 200 mls/hr IV.SIG STAT STA Rx#:[id number] NS Inj 1,000 ML @ Wide Open IV. 1000 / 1000 SIG BOLUS ADRIAN Rx#:[id number] Narrative: GENERAL: Well-developed, well-nourished patient in NAD. SKIN: Warm and dry. No rash. HEAD: Normocephalic. Atraumatic. EYES: Pupils equal and round. No scleral icterus. No injection or drainage. ENT: No nasal bleeding or discharge. Mucous membranes pink and moist. NECK: Supple. Trachea midline. CARDIOVASCULAR: Regular rate and rhythm. S1, S2 noted. No murmur appreciated. RESPIRATORY: No accessory muscle use. Clear to auscultation. Breath sounds equal bilaterally. GASTROINTESTINAL: Abdomen soft, tenderness to bilateral lower quadrants, nondistended. Normoactive bowel sounds x4. MUSCULOSKELETAL: No obvious deformities. Extremities without clubbing, cyanosis , or edema. NEUROLOGICAL: Awake and alert. No obvious cranial nerve deficits. Motor grossly within normal limits. 5/5 muscle strength in bilateral upper and lower extremities. Normal speech. PSYCHIATRIC: Appropriate mood and affect; insight and judgment normal. Results - Labs CBC & Chem 7: 01/21/18 14:15 01/21/18 14:15 Labs: Laboratory Results - last 24 hr 01/21/18 01/21/18 01/21/18 14:15 14:15 14:15 CBC w Diff Auto diff final WBC 9.1 RBC 4.31 Hgb 12.7 Hct 38.1 MCV 88.4 MCH 29.5 MCHC 33.3 RDW 15.1 Plt Count 379 MPV 9.1 Neut % (Auto) 87.2 H Lymph % (Auto) 11.4 [place] % (Auto) 0.4 Eos % (Auto) 0.6 Baso % (Auto) 0.4 Neut # (Auto) 8.0 H Lymph # (Auto) 1.0 [place] # (Auto) 0.0 Eos # (Auto) 0.1 Baso # (Auto) 0.0 WBC Differential . Differential Comment . Sodium 136 Potassium 4.2 Chloride 101 Carbon Dioxide 21.2 Anion Gap 14 BUN 35 H Creatinine 2.50 H Estimated GFR 19 L POC Glucose Random Glucose 117 H Lactic Acid 5.0 H* Calcium 9.2 Total Bilirubin 0.6 AST 25 ALT 23 Alkaline Phosphatase 84 Total Protein 8.0 Albumin 3.0 L Urine Color Urine Clarity Urine pH Ur Specific [place] Urine Protein Urine Glucose (UA) Urine Ketones Urine Occult Blood Urine Nitrate Urine Bilirubin Urine Urobilinogen Ur Leukocyte Esterase Ur Squamous Epith Cells Micro UA Comment Ur Microscopic Review Urine Culture Comments 01/21/18 01/21/18 14:43 15:40 CBC w Diff WBC RBC Hgb Hct MCV MCH MCHC RDW Plt Count MPV Neut % (Auto) Lymph % (Auto) [place] % (Auto) Eos % (Auto) Baso % (Auto) Neut # (Auto) Lymph # (Auto) [place] # (Auto) Eos # (Auto) Baso # (Auto) WBC Differential Differential Comment Sodium Potassium Chloride Carbon Dioxide Anion Gap BUN Creatinine Estimated GFR POC Glucose 107 Random Glucose Lactic Acid Calcium Total Bilirubin AST ALT Alkaline Phosphatase Total Protein Albumin Urine Color Yellow Urine Clarity Clear Urine pH 6.0 Ur Specific [place] 1.025 Urine Protein 100 H Urine Glucose (UA) Negative Urine Ketones Negative Urine Occult Blood Trace Urine Nitrate Negative Urine Bilirubin Negative Urine Urobilinogen 0.2 Ur Leukocyte Esterase Negative Ur Squamous Epith Cells 0-5 Micro UA Comment Culture not ind Ur Microscopic Review Microscopic reviewed Urine Culture Comments Culture not ind - Imaging Impressions Chest X-Ray 01/21/18 14:44 CONCLUSION: No acute intrathoracic disease. Stable exam. Abdomen/Pelvis CT 01/21/18 15:19 CONCLUSION: 1. Scattered diverticulosis of the sigmoid colon without definite inflammatory changes. 2. Status post left nephrectomy. 3. No new or significant changes are seen compared to the prior examination. Caprini VTE Risk Assessment Caprini VTE Risk Assessment: Moderate/High Risk (score >= 2) Caprini Risk Assessment Model: Point Value = 1 Point Value = 2 Point Value = 3 Point Value = 5 Age 41-60 Minor surgery BMI > 25 kg/m2 Swollen legs Varicose veins or History of unexplained or recurrent spontaneous Oral contraceptives or hormone replacement Sepsis (< 1 month) Serious lung disease, including pneumonia (< 1 month) Abnormal pulmonary function Acute myocardial infarction Congestive heart failure (< 1 month) History of inflammatory bowel disease Medical patient at bed rest Age 61-74 Arthroscopic surgery Major open surgery (> 45 min) Laparoscopic surgery (> 45 min) Malignancy Confined to bed (> 72 hours) Immobilizing plaster cast Central venous access Age >= 75 History of VTE Family history of VTE Factor V Leiden Prothrombin [id number] Lupus anticoagulant Anticardiolipin antibodies Elevated serum homocysteine Heparin-induced thrombocytopenia Other congenital or acquired thrombophilia Stroke (< 1 month) Elective arthroplasty Hip, pelvis, or leg fracture Acute spinal cord injury (< 1 month) Prophylaxis Regimen: Total Risk Factor Score Risk Level Prophylaxis Regimen 0-1 Low Early ambulation 2 Moderate Order ONE of the following: *Sequential Compression Device (SCD) *Heparin 5000 units SQ BID 3-4 Higher Order ONE of the following medications: *Heparin 5000 units SQ TID *Enoxaparin/Lovenox 40 mg SQ daily (WT < 150 kg, CrCl > 30 mL/min) *Enoxaparin/Lovenox 30 mg SQ daily (WT < 150 kg, CrCl > 10-29 mL/min) *Enoxaparin/Lovenox 30 mg SQ BID (WT < 150 kg, CrCl > 30 mL/min) AND/OR *Sequential Compression Device (SCD) 5 or more Highest Order ONE of the following medications: *Heparin 5000 units SQ TID (Preferred with Epidurals) *Enoxaparin/Lovenox 40 mg SQ daily (WT < 150 kg, CrCl > 30 mL/min) *Enoxaparin/Lovenox 30 mg SQ daily (WT < 150 kg, CrCl > 10-29 mL/min) *Enoxaparin/Lovenox 30 mg SQ BID (WT < 150 kg, CrCl > 30 mL/min) AND *Sequential Compression Device (SCD) Assessment and Plan - Assessment (1) Fever Code(s): R50.9 - Fever, unspecified Status: Acute (2) Abdominal pain Code(s): R10.9 - Unspecified abdominal pain Status: Acute (3) Diverticulosis Code(s): K57.90 - Diverticulosis of intestine, part unspecified, without perforation or abscess without bleeding Status: Acute - Plan This is a 77-year-old female patient with: Abdominal pain History of diverticulosis -Patient presents with complaints of abdominal pain times 2 days. Also complains of subjective fevers at home, chills and headache. -Abdominal CT reviewed showing diverticulosis without diverticulitis. Presents with some mild tenderness to right lower and left lower quadrants. Fever of unknown etiology -Sepsis workup in progress. Lactic acid 5.0, improved to 1.3. No leukocytosis. Fever 103 initially upon presentation. Now is normal. -Patient started on Azactam IV. Will add IV Flagyl in case infectious source secondary to GI. -Continue to monitor for fever. CBC in a.m. -Continue IV fluids. Patient was given 1 L NS bolus in ED. We will continue IV fluid. -UA negative. Blood cultures pending. Follow. History of nephrectomy Elevated creatinine suspect secondary to above -Patient's creatinine 2.5/GFR 19. Patient underwent nephrectomy in March 2017. -After review of renal function, patient's creatinine actually is improving over the year. Avoid nephrotoxins. -Continue to monitor function. BMP in a.m. DVT prophylaxis: SCDs. Heparin.
[2018-01-21] MEDS: Heparin - SQ 10,000 UNITS/ML Vial SQ SCH (17:38)
[2018-01-21] MEDS: Sod Chloride 0.9% Inj 1,000 ML IV.CONT SCH (18:35)
[2018-01-21] MEDS: oxyCODONE/Acetaminophen 10/325 Tablet PO SCH (21:20)
[2018-01-22] MEDS: Sod Chloride 0.9% Inj 1,000 ML IV.CONT SCH (04:41)
[2018-01-22] MEDS ORDERED: Levothyroxine 75 MCG Tablet PO SCH (06:00)
[2018-01-22] MEDS: Heparin - SQ 10,000 UNITS/ML Vial SQ SCH (06:13)
[2018-01-22 08:09] LABS: Baso # (Auto) 0.1 th/mm3 (0.0-0.2); Baso % (Auto) 1.3 % (0.0-2.0); Eos # (Auto) 0.1 th/mm3 (0.0-0.4); Eos % (Auto) 1.2 % (0.0-4.0); Hematocrit 32.8 % (35.0-46.0); Hemoglobin 10.9 gm/dL (11.6-15.3); Lymph # (Auto) 1.1 th/mm3 (1.0-4.8); Lymph % (Auto) 14.1 % (9.0-44.0); Mean Corpuscular HGB Conc 33.2 % (32.0-36.0); Mean Corpuscular Hemoglobin 29.3 pg (27.0-34.0); Mean Corpuscular Volume 88.3 fL (80.0-100.0); Mean Platelet Volume 9.5 fL (7.0-11.0); Mono # (Auto) 0.6 th/mm3 (0.0-0.9); Mono % (Auto) 7.4 % (0.0-8.0); Neut # (Auto) 6.1 th/mm3 (1.8-7.7); Platelet Count 244 th/mm3 (150-450); Red Blood Count 3.72 mil/mm3 (4.00-5.30)
[2018-01-22 08:35] LABS: Calcium 8.5 mg/dL (8.5-10.1); Carbon Dioxide 22.7 meq/L (21.0-32.0); Potassium 4.4 meq/L (3.5-5.1)
--- NOTE | 2018-01-22 08:35 | P.PNIM ---
Subjective Interval history: Follow-up fever of unknown etiology. Patient seen and examined, lying in bed comfortably no apparent distress. No fevers overnight. Eating well without any abdominal pain, nausea or vomiting. Patient did have a bowel movement, denies any diarrhea. Suspecting early onset diverticulitis. Continue on antibiotics. If patient is afebrile greater than 24 hours she was discharged home on p.o. antibiotics. We will continue to monitor over the course of the day. Physical Exam Vital signs: Vital Signs 01/21/18 14:09 01/21/18 14:29 01/21/18 14:44 Temperature 103 F H Pulse Rate 113 H 90 Respiratory Rate 26 H Blood Pressure 145/65 H Pulse Oximetry 98 98 98 01/21/18 15:26 01/21/18 15:55 01/21/18 17:32 Temperature 99 F 98.3 F Pulse Rate 87 88 Respiratory Rate 18 16 Blood Pressure 115/61 114/56 L Pulse Oximetry 96 92 L 01/21/18 20:00 01/22/18 00:00 Temperature 97.2 F L 97 F L Pulse Rate 82 66 Respiratory Rate 20 20 Blood Pressure 116/58 L 135/66 Pulse Oximetry 93 L 93 L Intake & Output 01/21/18 01/22/18 01/22/18 18:59 06:59 18:59 Intake Total 2099 1676 / 1676 100 / 100 Balance 2099 / 2099 1676 / 1676 100 / 100 Weight 77.4 kg 77.7 kg Intake: IV 2099 1616 / 1616 100 / 100 NS Inj 1,000 ML @ 100 mls/hr IV 1216 / 1216 .CONT .Q10H ADRIAN Rx#:[id number] Azactam Inj 1,000 MG In NS Inj 100 / 100 200 / 200 100 ML @ 200 mls/hr IV.SIG Q6H ADRIAN Rx#:[id number] NS Inj 1,000 ML @ Wide Open IV. 1999 SIG BOLUS ADRIAN Rx#:[id number] Flagyl 500 MG Inj 100 ML @ 100 200 / 200 100 / 100 mls/hr IV.SIG Q6H ADRIAN Rx#: [id number] Oral 60 / 60 Other: # Voids 4 Date of Last Bowel Movement 01/21/18 # Bowel Movements 1 Weight On Admission 77.4 kg Narrative: GENERAL: Well-developed, well-nourished patient in NAD. SKIN: Warm and dry. No rash. HEAD: Normocephalic. Atraumatic. EYES: Pupils equal and round. No scleral icterus. No injection or drainage. ENT: No nasal bleeding or discharge. Mucous membranes pink and moist. NECK: Supple. Trachea midline. CARDIOVASCULAR: Regular rate and rhythm. S1, S2 noted. No murmur appreciated. RESPIRATORY: No accessory muscle use. Clear to auscultation. Breath sounds equal bilaterally. GASTROINTESTINAL: Abdomen soft, mild tenderness to left lower quadrant., nondistended. Normoactive bowel sounds x4. MUSCULOSKELETAL: No obvious deformities. Extremities without clubbing, cyanosis , or edema. NEUROLOGICAL: Awake and alert. No obvious cranial nerve deficits. Motor grossly within normal limits. 5/5 muscle strength in bilateral upper and lower extremities. Normal speech. PSYCHIATRIC: Appropriate mood and affect; insight and judgment normal. Results - Labs CBC & Chem 7: 01/22/18 07:30 01/22/18 07:30 Laboratory Results - last 24 hr 01/21/18 01/21/18 01/21/18 14:15 14:15 14:15 CBC w Diff Auto diff final WBC 9.1 RBC 4.31 Hgb 12.7 Hct 38.1 MCV 88.4 MCH 29.5 MCHC 33.3 RDW 15.1 Plt Count 379 MPV 9.1 Neut % (Auto) 87.2 H Lymph % (Auto) 11.4 [place] % (Auto) 0.4 Eos % (Auto) 0.6 Baso % (Auto) 0.4 Neut # (Auto) 8.0 H Lymph # (Auto) 1.0 [place] # (Auto) 0.0 Eos # (Auto) 0.1 Baso # (Auto) 0.0 WBC Differential . Diff Scan Differential Comment . Sodium 136 Potassium 4.2 Chloride 101 Carbon Dioxide 21.2 Anion Gap 14 BUN 35 H Creatinine 2.50 H Estimated GFR 19 L POC Glucose Random Glucose 117 H Lactic Acid 5.0 H* Calcium 9.2 Total Bilirubin 0.6 AST 25 ALT 23 Alkaline Phosphatase 84 Total Protein 8.0 Albumin 3.0 L Urine Color Urine Clarity Urine pH Ur Specific [place] Urine Protein Urine Glucose (UA) Urine Ketones Urine Occult Blood Urine Nitrate Urine Bilirubin Urine Urobilinogen Ur Leukocyte Esterase Ur Squamous Epith Cells Micro UA Comment Ur Microscopic Review Urine Culture Comments Eosinophil Stool Smear Stl C.difficile DNA Amp St C. diff Tox Epid 027 01/21/18 01/21/18 01/21/18 14:43 15:40 16:45 CBC w Diff WBC RBC Hgb Hct MCV MCH MCHC RDW Plt Count MPV Neut % (Auto) Lymph % (Auto) [place] % (Auto) Eos % (Auto) Baso % (Auto) Neut # (Auto) Lymph # (Auto) [place] # (Auto) Eos # (Auto) Baso # (Auto) WBC Differential Diff Scan Differential Comment Sodium Potassium Chloride Carbon Dioxide Anion Gap BUN Creatinine Estimated GFR POC Glucose 107 Random Glucose Lactic Acid 1.3 Calcium Total Bilirubin AST ALT Alkaline Phosphatase Total Protein Albumin Urine Color Yellow Urine Clarity Clear Urine pH 6.0 Ur Specific [place] 1.025 Urine Protein 100 H Urine Glucose (UA) Negative Urine Ketones Negative Urine Occult Blood Trace Urine Nitrate Negative Urine Bilirubin Negative Urine Urobilinogen 0.2 Ur Leukocyte Esterase Negative Ur Squamous Epith Cells 0-5 Micro UA Comment Culture not ind Ur Microscopic Review Microscopic reviewed Urine Culture Comments Culture not ind Eosinophil Stool Smear Stl C.difficile DNA Amp St C. diff Tox Epid 027 01/21/18 01/21/18 01/22/18 20:30 20:30 07:30 CBC w Diff Slide review pending WBC 8.0 RBC 3.72 L Hgb 10.9 L Hct 32.8 L MCV 88.3 MCH 29.3 MCHC 33.2 RDW 15.0 Plt Count 244 D MPV 9.5 Neut % (Auto) 76.0 H Lymph % (Auto) 14.1 [place] % (Auto) 7.4 Eos % (Auto) 1.2 Baso % (Auto) 1.3 Neut # (Auto) 6.1 Lymph # (Auto) 1.1 [place] # (Auto) 0.6 Eos # (Auto) 0.1 Baso # (Auto) 0.1 WBC Differential . Diff Scan Auto diff confirmed Differential Comment . Sodium Potassium Chloride Carbon Dioxide Anion Gap BUN Creatinine Estimated GFR POC Glucose Random Glucose Lactic Acid Calcium Total Bilirubin AST ALT Alkaline Phosphatase Total Protein Albumin Urine Color Urine Clarity Urine pH Ur Specific [place] Urine Protein Urine Glucose (UA) Urine Ketones Urine Occult Blood Urine Nitrate Urine Bilirubin Urine Urobilinogen Ur Leukocyte Esterase Ur Squamous Epith Cells Micro UA Comment Ur Microscopic Review Urine Culture Comments Eosinophil Stool Smear None seen Stl C.difficile DNA Amp Negative St C. diff Tox Epid 027 Negative Microbiology 01/21/18 15:20 Nasal Wash Influenza Types A,B Antigen - Final Negative for FLU A and B antigen Infection due to influenza A or B cannot be ruled out since the antigen present in the sample may be below the detection limit of the test. - Imaging Impressions Chest X-Ray 01/21/18 14:44 CONCLUSION: No acute intrathoracic disease. Stable exam. Abdomen/Pelvis CT 01/21/18 15:19 CONCLUSION: 1. Scattered diverticulosis of the sigmoid colon without definite inflammatory changes. 2. Status post left nephrectomy. 3. No new or significant changes are seen compared to the prior examination. Assessment and Plan - Assessment (1) Fever Code(s): R50.9 - Fever, unspecified Status: Acute (2) Abdominal pain Code(s): R10.9 - Unspecified abdominal pain Status: Acute (3) Diverticulosis Code(s): K57.90 - Diverticulosis of intestine, part unspecified, without perforation or abscess without bleeding Status: Acute - Plan This is a 77-year-old female patient with: Abdominal pain. Improved. History of diverticulosis -Patient presents with complaints of abdominal pain times 2 days. Also complains of subjective fevers at home, chills and headache. -Abdominal CT reviewed showing diverticulosis without diverticulitis. Presents with some mild tenderness to right lower and left lower quadrants. -Suspect early outset diverticulitis, started on Azactam and Flagyl. Will continue. Fever of unknown etiology. Improved. -Sepsis workup in progress. Lactic acid 5.0, improved to 1.3. No leukocytosis. Fever 103 initially upon presentation. Now is normal. No fevers overnight. -Patient started on Azactam IV. Added IV Flagyl for anaerobic coverage. -Continue to monitor for fever. If >24 hours without fever patient will be discharged home on PO ABX. -Patient was given 1 L NS bolus in ED. Was given IVF overnight. Will DC now. -UA negative. Blood cultures negative to date. History of nephrectomy Elevated creatinine suspect secondary to above -Patient's creatinine 2.5/GFR 19. Patient underwent nephrectomy in March 2017. Creatinine improved today 2.0. -After review of renal function, patient's creatinine actually is improving over the year. Avoid nephrotoxins. -Continue to monitor function. DVT prophylaxis: SCDs. Heparin. DC home. Follow up PCP. Activity as tolerated. Diet as tolerated. RX as written. Discharge Planning: If patient >24 hours without fever will dc home.
[2018-01-22 08:51] VITALS: RESP 17
[2018-01-22] MEDS ORDERED: Magnesium Oxide 400 MG Tablet PO SCH (09:00)
[2018-01-22] MEDS ORDERED: HYOSCYAMINE PO SCH (09:00)
[2018-01-22] MEDS ORDERED: RESTASIS EYE EACH EYE SCH (09:00)
[2018-01-22] MEDS ORDERED: Chlorthalidone 50 MG Tablet PO SCH (09:00)
[2018-01-22] MEDS ORDERED: Metoclopramide 10 MG Tablet PO SCH (09:00)
[2018-01-22] MEDS: oxyCODONE/Acetaminophen 10/325 Tablet PO SCH (09:05)
--- NOTE | 2018-01-22 10:03 | ECG ---
Date Performed: 01/21/2018 Time Performed: 14:13:50 PTAGE: 77 years EKG: Sinus rhythm LOW QRS VOLTAGE IN PRECORDIAL LEADS MINIMAL ST DEPRESSION BORDERLINE ECG INTERPRETATION BASED ON Maria C CHAULT AGE OF 38 YEARS PREVIOUS TRACING : 04/21/2017 16.44 DOCTOR: Katina Boone Interpretating Date/Time 01/22/2018 10:01:12
[2018-01-22 13:48] VITALS: BP 135/65; PULSE 69; TEMP 97.6; O2SAT 97
[2018-01-22] MEDS ORDERED: Latanoprost 0.005% Opth Drops 2.5 ML Bottle EACH EYE SCH (18:00)
== END 2018-01-22 13:55 | disposition home or self-care (01) ==
LOC: PHEDA 14:02 → PHED 14:02 → PHEDA 18:14 → PH3 18:15
PROVIDERS: ADMIT Internal Medicine; ATTEND Internal Medicine